=== PATIENT | male | born 1950 | race Caucasian/White ===

== ENCOUNTER 2020-08-29 23:37 | Emergency (ER) | payer MEDICARE ==
[~2020-08-29] VITALS: Ht 170.2 cm; Wt 99.8 kg
--- OUTSIDE RECORDS SUMMARY | 2020-08-29 23:49 | CCD ---
Author Author [facility] Organization [facility] Address Unknown Phone Unavailable Care Team Providers Care Calendar Control Clerk [employer] Name Role Phone TABBY LACKEY M.D. Unavailable Unavailable Tushar GIBSON MD Unavailable Unavailable Tushar GIBSON MD Unavailable Unavailable Tushar GIBSON MD Unavailable Unavailable SUNG, BINGHAM DO Unavailable +011 SUNG, BINGHAM DO Unavailable +011 SUNG, BINGHAM DO Unavailable +011 SUNG, BINGHAM DO Unavailable +011 SUNG, BINGHAM DO Unavailable +011 SUNG, BINGHAM DO Unavailable +011 SUNG, BINGHAM DO Unavailable +011 SUNG, BINGHAM DO Unavailable +011 SUNG, BINGHAM DO Unavailable +011 SUNG, BINGHAM DO Unavailable +011 SUNG, BINGHAM DO Unavailable +011 SUNG, BINGHAM DO Unavailable +011 SUNG, BINGHAM DO Unavailable +011 TIFFANY VAUGHN MD Unavailable Unavailable TIFFANY VAUGHN MD Unavailable Unavailable TIFFANY VAUGHN MD Unavailable Unavailable TIFFANY VAUGHN MD Unavailable Unavailable TIFFANY VAUGHN MD Unavailable Unavailable TIFFANY VAUGHN MD Unavailable Unavailable TIFFANY VAUGHN MD Unavailable Unavailable TIFFANY VAUGHN MD Unavailable Unavailable TIFFANY VAUGHN MD Unavailable Unavailable TIFFANY VAUGHN MD Unavailable Unavailable TIFFANY VAUGHN MD Unavailable Unavailable TIFFANY VAUGHN MD Unavailable Unavailable TIFFANY VAUGHN MD Unavailable Unavailable Guillermo, Wahib Unavailable Unavailable Guillermo, Wahib Unavailable Unavailable Guillermo, Wahib Unavailable Unavailable Guillermo, Wahib MD Unavailable Unavailable Guillermo, Wahib Unavailable Unavailable Guillermo, Wahib Unavailable Unavailable Guillermo, Wahib Unavailable Unavailable Guillermo, Wahib MD Unavailable Unavailable Guillermo, Wahib MD Unavailable Unavailable Guillermo, Wahib MD Unavailable Unavailable Guillermo, Wahib MD Unavailable Unavailable Guillermo, Wahib Unavailable Unavailable Guillermo, Wahib Unavailable Unavailable ARTHURSANDOR MD Unavailable Unavailable Chudasama-Jayden, A Haven COIL MACHINE SUPERVISOR Unavailable Unavailab le Chudasama-Jayden, A Haven COIL MACHINE SUPERVISOR Unavailable Unavailab le Chudasama-Jayden, A Haven COIL MACHINE SUPERVISOR Unavailable Unavailab le Chudasama-Jayden, A Haven COIL MACHINE SUPERVISOR Unavailable Unavailab le Chudasama-Jayden, A Haven COIL MACHINE SUPERVISOR Unavailable Unavailab le Chudasama-Jayden, A Haven COIL MACHINE SUPERVISOR Unavailable Unavailab le Chudasama-Jayden, A Haven COIL MACHINE SUPERVISOR Unavailable Unavailab le Chudasama-Jayden, A Haven COIL MACHINE SUPERVISOR Unavailable Unavailab le Chudasama-Jayden, A Haven COIL MACHINE SUPERVISOR Unavailable Unavailab le Chudasama-Jayden, A Haven COIL MACHINE SUPERVISOR Unavailable Unavailab le Chudasama-Jayden, A Haven COIL MACHINE SUPERVISOR Unavailable Unavailab le Chudasama-Jayden, A Haven COIL MACHINE SUPERVISOR Unavailable Unavailab le Chudasama-Jayden, A Haven COIL MACHINE SUPERVISOR Unavailable Unavailab le Chudasama-Jayden, A Haven COIL MACHINE SUPERVISOR Unavailable Unavailab le Chudasama-Jayden, A Haven COIL MACHINE SUPERVISOR Unavailable Unavailab le Chudasama-Jayden, A Haven COIL MACHINE SUPERVISOR Unavailable Unavailab le Chudasama-Jayden, A Haven COIL MACHINE SUPERVISOR Unavailable Unavailab le Chudasama-Jayden, A Haven COIL MACHINE SUPERVISOR Unavailable Unavailab le Chudasama-Jayden, A Haven COIL MACHINE SUPERVISOR Unavailable Unavailab le Chudasama-Jayden, A Haven COIL MACHINE SUPERVISOR Unavailable Unavailab le Chudasama-Jayden, A Haven COIL MACHINE SUPERVISOR Unavailable Unavailab TRU Friedman MD Unavailable Unavailable FEDTRU GUERRA MD Unavailable Unavailable FEDTRU GUERRA MD Unavailable Unavailable FEDTRU GUERRA MD Unavailable Unavailable FEDOROTRU HUFF MD Unavailable Unavailable OTILIA ROJAS DO Unavailable Unavailable TIFFANY VAUGHN MD Unavailable Unavailable ANJALI XAVIER MD Unavailable Unavailable ANJALI XAVIER MD Unavailable Unavailable Tushar MARTINEZ M.D. Unavailable Tushar MARTINEZ M.D. Unavailable Tushar MARTINEZ M.D. Unavailable Tushar MARTINEZ M.D. Unavailable [phone] Tushar MARTINEZ M.D. Unavailable Tushar MARTINEZ M.D. Unavailable Tushar MARTINEZ M.D. Unavailable [phone] Tushar MARTINEZ M.D. Unavailable Re-disclosure Warning The records that you are about to access may contain information from federally-assisted alcohol or drug abuse programs. If such information is present, then the following federally mandated warning applies: This information has been disclosed to you from records protected by federal confidentiality rules (42 CFR part 2). The federal rules prohibit you from making any further disclosure of this information unless further disclosure is expressly permitted by the written consent of the person to whom it pertains or as otherwise permitted by 42 CFR part 2. A general authorization for the release of medical or other information is NOT sufficient for this purpose. The Federal rules restrict any use of the information to criminally investigate or prosecute any alcohol or drug abuse patient.The records that you are about to access may contain highly sensitive health information, the redisclosure of which is protected by Article 27-F of the [facility] Public Health law. If you continue you may have access to information: Regarding HIV / AIDS; Provided by facilities licensed or operated by the [facility] Office of Mental Health; or Provided by the [facility] Office for People With Developmental Disabilities. If such information is present, then the following [facility] mandated warning applies: This information has been disclosed to you from confidential records which are protected by state law. State law prohibits you from making any further disclosure of this information without the specific written consent of the person to whom it pertains, or as otherwise permitted by law. Any unauthorized further disclosure in violation of state law may result in a fine or mcc sentence or both. A general authorization for the release of medical or other information is NOT sufficient authorization for further disc losure. Allergies and Adverse Reactions Type Description Substance Reaction Status Data Source(s ) Drug allergy Saunders And Derivatives Saunders And Derivatives SW ELLING OF HANDS AND LIPS U [facility] Drug allergy No Known Drug Allergies No Known Drug Allergies [facility] Drug allergy No Known Allergies No Known Allergies [facility] Family History Family Member Name Family Member Gender Family Member Status Date o f Status Description Data Source(s) Unknown Unknown Problem [facility] ([facility]) Encounters Encounter Providers Location Date Indications Data Source(s ) Outpatient Attender: Gregorio Li MD ER-CTCMEDONC 02/12/2020 08:33:00 AM EDT [facility] Outpatient Attender: TABBY MARTINEZ M.D.Attender: TABBY NARAYANAN M.D. ER-CARD 02/12/2020 04:00:00 AM EDT [facility] Outpatient Attender: Gregorio Li MD ER-RAD 02/11/2020 06:29:00 AM EDT [facility] Outpatient Attender: TABBY MARTINEZ M.D.Attender: TABBY NARAYANAN M.D. ER-RAD 02/09/2020 07:42:00 AM EDT [facility] Outpatient [address] [place] [address] 02/05/2020 12:00:00 AM EDT eCW1 ([facility]) Outpatient [address] [place] [address] 02/05/2020 12:00:00 AM EDT eCW1 ([facility]) Outpatient [address] [place] [address] 01/28/2020 12:00:00 AM EDT eCW1 ([facility]) Outpatient Attender: TABBY MARTINEZ M.D.Attender: TABBY NARAYANAN M.D. ER-LAB 01/22/2020 12:03:00 PM EDT [facility] Outpatient Attender: Gregorio Li MD ER-CTCMEDONC 01/22/2020 07:12:00 AM EDT [facility] Outpatient [address] [facility] [address] [place] [address] 01/22/2020 12:00:00 AM EDT eCW1 ([facility]) Outpatient Attender: Haven MENDIOLA 0 02:37:00 PM EDT [facility] Outpatient [address] [facility] [address] [place] [address] 01/08/2020 12:00:00 AM EDT eCW1 ([facility]) Outpatient [address] [facility] [address] [place] [address] 12/29/2019 12:00:00 AM EDT [facility] Inpatient Attender: OTILIA ROJAS DOAttender : OTILIA ROJAS DOAttender: SANDOR GIBSON MDAttender: SANDOR GIBSON MDAttender: TRU FERNANDEZ MDAdmitter: SANDOR GIBSON MD ER-2[facility] 12/26/2019 10:12:00 AM EDT - 12/27/2019 10:39:00 AM EDT [facility] Patient discharged. Outpatient [address] [facility] [address] [place] [address] 12/26/2019 12:00:00 AM EDT eCW1 ([facility]) Outpatient Attender: Haven WOODSP [facility] 10/14/2019 09:38:00 AM EDT [facility] Outpatient [address] [facility] [address] [place] [address] 10/14/2019 12:00:00 AM EDT [facility] Outpatient Attender: Haven WOODSP ER-[facility] 09/16/2019 02:18:00 PM EDT [facility] [address] [facility] [address] [place] [address] 09/16/2019 12:00:00 AM EDT eCW1 ([facility]) Inpatient Attender: TIFFANY VAUGHN MDAttender: TIFFANY VAUGHN MDAttender: SANDOR GIBSON MDAttender: SANDOR GIBSON MDAttender: ANJALI XAVIER MDAdmitter: SANDOR GIBSON MD ER-2[facility] 08/18/2019 07:59:00 PM EST - 08/20/2019 02:47:00 PM [facility] Patient discharged. Immunizations Vaccine Date Status Description Data Source(s) pneumococcal polysaccharide PPV23 01/22/2020 11:59:00 AM EDT comple terrance eCW1 ([facility]) pneumococcal polysaccharide PPV23 01/22/2020 11:59:00 AM EDT comple terrance eCW1 ([facility]) pneumococcal polysaccharide PPV23 01/22/2020 11:59:00 AM EDT comple terrance eCW1 ([facility]) pneumococcal polysaccharide PPV23 01/22/2020 11:59:00 AM EDT comple terrance eCW1 ([facility]) pneumococcal polysaccharide PPV23 01/22/2020 11:59:00 AM EDT comple terrance eCW1 ([facility]) Medications Medication Brand Name Start Date Product Form Dose Route Admi nistrative Instructions Pharmacy Instructions Status Indications Reaction Description Data Source(s) Fluconazole 100 MG Oral Tablet [Diflucan] Diflucan 100 MG Di flucan 100 MG 02/05/2020 12:00:00 AM EDT 1.0 {tablet} active Diflucan 100 MG eCW1 ([facility]) Fluconazole 100 MG Oral Tablet [Diflucan] Diflucan 100 MG Di flucan 100 MG 02/05/2020 12:00:00 AM EDT 1.0 {tablet} active Diflucan 100 MG eCW1 ([facility]) 28 ACTUAT olodaterol 0.0025 MG/ACTUAT / tiotropium 0.0025 MG/ACTUAT Metered Dose Inhaler [Stiolto] Stiolto Respimat 2.5-2.5 MCG/ACT Stiolto Respimat 2.5-2.5 MCG/ACT 02/05/2020 12:00:00 AM EDT 2.0 {puffs} activ e Stiolto Respimat 2.5-2.5 MCG/ACT eCW1 ([facility]) 28 ACTUAT olodaterol 0.0025 MG/ACTUAT / tiotropium 0.0025 MG/ACTUAT Metered Dose Inhaler [Stiolto] Stiolto Respimat 2.5-2.5 MCG/ACT Stiolto Respimat 2.5-2.5 MCG/ACT 02/05/2020 12:00:00 AM EDT 2.0 {puffs} activ e Stiolto Respimat 2.5-2.5 MCG/ACT eCW1 ([facility]) 200 ACTUAT Albuterol 0.09 MG/ACTUAT Mete red Dose Inhaler [ProAir] ProAir HFA 108 (90 Base) MCG/ACT ProAir HFA 108 (90 Base) MCG/ACT 01/22/2020 12:00:00 AM EDT 2.0 {puffs} active ProAir HFA 1 08 (90 Base) MCG/ACT eCW1 ([facility]) 200 ACTUAT Albuterol 0.09 MG/ACTUAT Mete red Dose Inhaler [ProAir] ProAir HFA 108 (90 Base) MCG/ACT ProAir HFA 108 (90 Base) MCG/ACT 01/22/2020 12:00:00 AM EDT 2.0 {puffs} active ProAir HFA 1 08 (90 Base) MCG/ACT eCW1 ([facility]) 200 ACTUAT Albuterol 0.09 MG/ACTUAT Mete red Dose Inhaler [ProAir] ProAir HFA 108 (90 Base) MCG/ACT ProAir HFA 108 (90 Base) MCG/ACT 01/22/2020 12:00:00 AM EDT 2.0 {puffs} active ProAir HFA 1 08 (90 Base) MCG/ACT eCW1 ([facility]) 30 ACTUAT fluticasone furoate 0.1 MG/ACT UAT / vilanterol 0.025 MG/ACTUAT Dry Powder Inhaler [Breo] Breo Ellipta 100-25 MCG/INH Breo Ellipta 100-25 MCG/INH 01/22/2020 12:00:00 AM EDT 1.0 {puff} active Breo Ellipta 100-25 MCG/INH eCW1 ([facility]) 200 ACTUAT Albuterol 0.09 MG/ACTUAT Mete red Dose Inhaler [ProAir] ProAir HFA 108 (90 Base) MCG/ACT ProAir HFA 108 (90 Base) MCG/ACT 01/22/2020 12:00:00 AM EDT 2.0 {puffs} active ProAir HFA 1 08 (90 Base) MCG/ACT eCW1 ([facility]) 200 ACTUAT Albuterol 0.09 MG/ACTUAT Mete red Dose Inhaler [ProAir] ProAir HFA 108 (90 Base) MCG/ACT ProAir HFA 108 (90 Base) MCG/ACT 01/22/2020 12:00:00 AM EDT 2.0 {puffs} active ProAir HFA 1 08 (90 Base) MCG/ACT eCW1 ([facility]) 30 ACTUAT fluticasone furoate 0.1 MG/ACT UAT / vilanterol 0.025 MG/ACTUAT Dry Powder Inhaler [Breo] Breo Ellipta 100-25 MCG/INH Breo Ellipta 100-25 MCG/INH 01/22/2020 12:00:00 AM EDT 1.0 {puff} active Breo Ellipta 100-25 MCG/INH eCW1 ([facility]) 30 ACTUAT fluticasone furoate 0.1 MG/ACT UAT / vilanterol 0.025 MG/ACTUAT Dry Powder Inhaler [Breo] Breo Ellipta 100-25 MCG/INH Breo Ellipta 100-25 MCG/INH 01/22/2020 12:00:00 AM EDT 1.0 {puff} active Breo Ellipta 100-25 MCG/INH eCW1 ([facility]) Insurance Providers Payer name Policy type / Coverage type Policy ID Covered libertarian ID Covered libertarian's relationship to song Policy Song Plan Information [facility] OPTIONS [id number] S [id number] [facility] [id number] MEDICARE [id number] S [id number] MCRB [id number] S [id number] MEDICAID M [id number] Self [id number] [facility] UNITED MEDICARE COMPLETE G [id number] Self [id number] Non [place] Care Commercial [id number] Self [id number] [facility] Options Medigap Part B [id number] Self [id number] Medicare Part B Medicare Primary [id number] Self [id number] AARP HEA [id number] S [id number] MEDICARE MCA [id number] S [id number] MEDICARE MCA [id number] S [id number] MEDICAID [id number] Faye [id number] [facility] MEDICARE [id number] Faye [id number] MEDICAID PI PI [facility] MEDICARE PI PI Medicaid After Medicare Medigap Part B [id number] Self [id number] [facility] Commercial [id number] Self [id number] OTHER B [id number] Self [id number] [facility] Dual Complete [id number] Medicaid [id number] [facility] Community Plan [id number] STPP Wrap [id number] [facility] Community Plan Medicaid Nycdfhp self Nycdfhp [facility] Community Plan [id number] 99 [id number] [facility] HEA [id number] Problems, Conditions, and Diagnoses Code Display Name Description Problem Type Effective Dates Data Source(s) G47.19 [id number] Excessive daytime sleepiness Problem 01/22/2020 12:00:00 AM EDT eCW1 ([facility]) Z01.812 Encounter for preprocedural laboratory e xamination Pre-procedure lab exam Problem 01/22/2020 12:00:00 AM EDT eCW1 ([facility]) R06.02 [id number] SOB (shortness of breath) on exertion Pro blem 01/22/2020 12:00:00 AM EDT eCW1 ([facility]) J32.9 [id number] Sinusitis, unspecified chronicity, unspec ified location Problem 01/22/2020 12:00:00 AM EDT eCW1 ([facility]) R41.3 [id number] Memory loss Problem 01/22/2020 12:00:00 AM E DT eCW1 ([facility]) Z23 Vaccination given Encounter for immunization Problem 01/22/2020 12:00:00 AM EDT eCW1 ([facility]) G47.33 [id number] ARAVIND (obstructive sleep apnea) Problem 01/22/2020 12:00:00 AM EDT eCW1 ([facility]) Z77.090 [id number] Asbestos exposure Problem 01/22/2020 12:00:0 0 AM EDT eCW1 ([facility]) Z86.19 History of infectious disease Frequent infections Prob nikhil 01/22/2020 12:00:00 AM EDT eCW1 ([facility]) I27.20 [id number] Pulmonary hypertension Problem 01/22/2020 12 :00:00 AM EDT eCW1 ([facility]) I10 Hypertension Hypertension Problem 01/22/2020 12:00:00 A M EDT eCW1 ([facility]) R63.5 Weight gain Weight gain Problem 01/22/2020 12:00:00 AM EDT eCW1 ([facility]) I10 [id number] Essential hypertension Problem 01/08/2020 12 :00:00 AM EDT eCW1 ([facility]) C61 [id number] Prostate cancer Problem 01/08/2020 12:00:00 AM EDT eCW1 ([facility]) I10 Essential (primary) hypertension ESSENTIAL (PRIMARY) H YPERTENSION Diagnosis 02/12/2020 08:33:00 AM EDT [facility] R59.0 Localized enlarged lymph nodes LOCALIZED ENLARGED LYMP H NODES Diagnosis 02/12/2020 08:33:00 AM EDT [facility] R97.20 ELEVATED PROSTATE SPECIFIC ANTIGEN [PSA] ELEVATED PROSTATE SPECIFIC ANTIGEN [PSA] Diagnosis 02/12/2020 08:33:[facility] I37.1 Nonrheumatic pulmonary valve insufficien cy NONRHEUMATIC PULMONARY VALVE INSUFFICIENCY Diagnosis 02/12/2020 04:00:00 AM EDT [facility] norbert I36.1 Nonrheumatic tricuspid (valve) insuffici ency NONRHEUMATIC TRICUSPID (VALVE) INSUFFICIENCY Diagnosis 02/12/2020 04:00:00 AM EDT [facility] I34.0 Nonrheumatic mitral (valve) insufficienc y NONRHEUMATIC MITRAL (VALVE) INSUFFICIENCY Diagnosis 02/12/2020 04:00:00 AM EDT [facility] norbert I27.20 PULMONARY HYPERTENSION, UNSPECIFIED PULMONARY HY PERTENSION, UNSPECIFIED Diagnosis 02/12/2020 04:00:00 AM [facility] R07.9 Chest pain, unspecified CHEST PAIN, UNSPECIFIED Diagno sis 02/12/2020 04:00:00 AM [facility] C61 Malignant neoplasm of prostate MALIGNANT NEOPLASM OF P ROSTATE Diagnosis 02/11/2020 06:29:00 AM [facility] D17.1 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 BENIGN LIPOMATOUS NEOPLASM OF SKIN, SUBCU OF TRUNK Diagnosis 0 07:42:00 AM [facility] I25.10 Atherosclerotic heart diseas e of [place] coronary artery without angina pectoris ATHSCL HEART DISEASE OF [place] CORONARY ARTERY W/O Diagnosis 02/09/2020 07:42:00 AM [facility] R06.02 Shortness of breath SHORTNESS OF BREATH Diagnosis 0 02/09/2020 07:42:00 AM [facility] J32.9 Chronic sinusitis, unspecified CHRONIC SINUSITIS, UNSP ECIFIED Diagnosis 02/09/2020 07:42:00 AM [facility] Z86.19 Personal history of other infectious and parasitic diseases PERSONAL HISTORY OF OTHER INFECTIOUS AND PARASITIC Diagnosis 01/22/2020 12:03:0 0 PM [facility] Z91.19 Patient's noncompliance with other medic al treatment and regimen PATIENT'S NONCOMPLIANCE W OTH MEDICAL TREATMENT AN Diagnosis 08/2019 02:37:00 PM [facility] M25.561 Pain in right knee PAIN IN RIGHT KNEE Diagnosis 08/2019 02:37:00 PM [facility] Z86.79 Personal history of other diseases of th e circulatory system PERSONAL HISTORY OF OTHER DISEASES OF THE CIRCULAT Diagnosis 01/08/2020 02:37:0 0 PM EDT [facility] K56.600 PARTIAL INTESTINAL OBSTRUCTION, UNSPECIF IED TO PARTIAL INTESTINAL OBSTRUCTION, UNSPECIFIED TO Diagnosis 01/08/2020 02:37:00 PM EDT [facility] Z09 Encounter for follow-up exam ination after completed treatment for conditions other than malignant neoplasm ENCNTR FOR F/U EXAM AFT TRTMT FOR COND O TH THAN MALIG NEOPLM Diagnosis 01/08/2020 02:37:00 PM EDT [facility] norbert Z53.29 Procedure and treatment not carried out because of patient's decision for other reasons PROC/TRTMT NOT CRD OUT BEC PT DECISION FOR OTH KAILYN Diagnosis 12/26/2019 10:12:00 AM EDT [facility] R10.9 Unspecified abdominal pain UNSPECIFIED ABDOMINAL PAIN Diagnosis 12/26/2019 10:12:00 AM EDT [facility] R51 Headache HEADACHE Diagnosis 12/26/2019 10:12:00 AM ED T [facility] Z87.891 Personal history of nicotine dependence PERSONAL HISTORY OF NICOTINE DEPENDENCE Diagnosis 12/26/2019 10:12:00 AM EDT [facility] R60.0 Localized edema LOCALIZED EDEMA Diagnosis 12/26/2019 10:1 2:00 AM EDT [facility] 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 AND P Diagnosis 12/26/2019 10:12:00 AM EDT [facility] E87.70 Fluid overload, unspecified FLUID OVERLOAD, UNSPECIFIE D Diagnosis 12/26/2019 10:12:00 AM EDT [facility] Z12.5 Encounter for screening for malignant ne oplasm of prostate ENCOUNTER FOR SCREENING FOR MALIGNANT NE Diagnosis 10/14/2019 09:38:00 AM EDT [facility] E86.0 Dehydration DEHYDRATION Diagnosis 08/18/2019 07:59:00 PM [facility] K52.9 Noninfective gastroenteritis and colitis , unspecified NONINFECTIVE GASTROENTERITIS AND COLITIS, UNSPECIF Diagnosis 08/18/2019 07:59:00 PM [facility] Surgeries/Procedures Procedure Description Date Indications Data Source(s) Introduction of Other Therapeutic Substa nce into Peripheral Vein, Percutaneous Approach 12/26/2019 12:00:00 AM EDT [facility] Venipuncture 10/14/2019 12:00:00 AM EDT eCW1 ([facility]) Results ID Date Data Source [id number] 02/17/2020 05:21:00 AM EDT [facility] Exam Number: [id number] STRESS ECHOCARDIOGRAMSEMIGUEL GOMEZD.O.B: 54DATE OF EXAM; 02/12/2020REASON FOR EXAM: SHORTNESS OF BREATHThere was no evidence of significant reversible ischemia on dobutaminestress echocardiogram.No significat ST segment changes with dobutamine infusion.102 % of the target heart rate was reached.The test was stopped secondary to exceeding the target heart rate.The patient remained asymptomatic without chest pain or shortness ofbreath.No diagnostic ST segment changes were seen.Patient had no significant arrhythmias.There was normal augmentation of all left ventricular wall segmentspost peak dobutamine infusion.Normal LV chamber size with an estimated LVEF of about 60 %.Mild concentric left ventricular hypertrophy.The LV systolic function is normal.Mild LV diastolic dysfunction with abnormal relaxation pattern.The ascending aorta is mildly dilated ( 3.4 cm ); no obviousdissection was seen.The aortic valve function is normal.Trace mitral valve regurgitation. No valve stenosis, or leafletsprolapse.Trace pulmonary valve regurgitation. No valve stenosis.Mild tricuspid valve regurgitation. No valve stenosis.The right ventricular size and function are normal.The estimated RVSP is 27 mmHg.The interatrial and interventricular septa appears intact.There is no pericardial effusion. Reported By: - Alejandra Rizo MD Signed By: Alejandra Rizo MD Name Value Range Interpretation Code Description Data Antionette rce(s) Supporting Document(s) ID Date Data Source [id number] 02/12/2020 08:48:00 PM EDT [facility] [address] [id number] PROGRESS NOTEPATIENT NAME: MIGUEL VICKERS PHYSICIAN: TABBY Finley LEEAUTHOR: Alejandra Rizo MD : 54ADM. DATE: MR#: [id number] NOTE DATE: 02/12/20 RM#:EVALUATION TIME: [address] [facility]#: [id number] NotesDOBUTAMINE STRESS ECHOCARDIOGRAMSENIEVES GOMEZ.B: 54DATE OF EXAM; 02/12/2020REASON FOR EXAM: SHORTNESS OF BREATHThere was no evidence of significant reversible ischemia on dobutamine stressechocardiogram.No significat ST segment changes with dobutamine infusion.102 % of the target heart rate was reached.The test was stopped secondary to exceeding the target heart rate.The patient remained asymptomatic without chest pain or shortness of breath.No diagnostic ST segment changes were seen.Patient had no significant arrhythmias.There was normal augmentation of all left ventricular wall segments post peakdobutamine infusion.Normal LV chamber size with an estimated LVEF of about 60 %.Mild concentric left ventricular hypertrophy.The LV systolic function is normal.Mild LV diastolic dysfunction with abnormal relaxation pattern.The ascending aorta is mildly dilated ( 3.4 cm ); no obvious dissection wasseen.The aortic valve function is normal.Trace mitral valve regurgitation. No valve stenosis, or leaflets prolapse.Trace pulmonary valve regurgitation. No valve stenosis.Mild tricuspid valve regurgitation. No valve stenosis.The right ventricular size and function are normal.The estimated RVSP is 27 mmHg.The interatrial and interventricular septa appears intact.There is no pericardial effusion.DATE SIGNED: 02/12/20 Electronically SignedTIME SIGNED: [id number] ALEJANDRA Finley BANNER Name Value Range Interpretation Code Description Data Antionette rce(s) Supporting Document(s) ID Date Data Source [id number] 02/12/2020 04:16:00 PM EDT [facility] norbert Loera [facility] [address] [place] [id number] FOLLOW UP NOTENAME: MIGUEL VICKERS RPHYSICIAN: JUAN HARKINSATE OF SERVICE: 02/12/20DATE OF : [birth year]ACCOUNT #: [id number]: MIGUEL VICKERSDate: Feb 12, 2020DOB: [birth year]Physician: Dr. Gregorio Li M.D.Age: 69Note Title: Hematology/Medical Oncology Follow UpDiagnosis:Primary - R59.1 - Generalized enlarged lymph nodes, Diagnosed Jan 22, 2020(Active)Primary - R97.20 - Elevated prostate specific antigen [PSA], Diagnosed 2019 (Active)History of Problems:Problems / Chief Complaints:Referral for prostate cancer?History of Present Illness:The patient is a 69-year-old male with a past medical history of prostatecancer and hypertension. The prostate cancer is presumed as the patient isnever had a biopsy. His PSA is elevated. Patient was referred to [facility] initially, he said he left before a full evaluation could becompleted because he did not like the team there. The patient is status postdischarge from [facility] on December 23 after he presented with shortness of breathand weight gain. The patient had lower extremity edema and elevated bloodpressure. The patient was noted to have lymphadenopathy in the periaortic andcommon iliac nodes. The patient decided to sign out AGAINST MEDICAL ADVICE.Patient has had a few urology appointments that he is canceled.The day the patient presents for his initial encounter. He is a nicegentleman who clearly has difficulty taking orders from anyone else. He feltthat his previous encounters with doctors, they were told what to do. Thepatient says that at this time he would like to further investigate if he hasprostate cancer and then would like to manage it. Patient has made it clear hehas never had a biopsy. Today the patient is in no acute distress, he is alertand oriented x3, does not complain of weight loss, weight gain, headache, chestpain, shortness of breath, abdominal pain, urinary or bowel discomfort, bloodin his stool or blood in his urine, leg swelling.As per the ER note on the date of admission to the hospital, his bloodpressure was 198/122, he had 8 out of 10 painful headache, dizziness andunsteady gait. He did not have chest pain, nausea or vomiting. He did nothave any urinary discomfort, no bowel discomfort.December 26, 2019 echocardiogram: Normal left ventricular chamber size, EF 60%,mild concentric LVH, normal LV diastolic function, no significant significantvalvular abnormalities.Patient had a PET/CT on February 11, 2020 that showed mild periaorticlymphadenopathy. No other disease was present. The patient scheduled for abiopsy with urology in the next 2 weeks. The patient is on no the patient.08/27/2019 CT abdomen pelvis: Fatty liver, 0.7 cm parenchymal stone in theupper lobe of the left kidney, bilateral lymphadenopathy in the common iliacnodes. Some lymphadenopathy in the left periaortic node.Past Medical History:HypertensionProstate CancerPast Surgical History:Plastic Plate in HeadAllergies:No Known Allergies.Current Medications:inhaler 1 puff(s) Inhaler Oral daily (Start Date - unknown)Social History:Mr. VICKERS is single. Mr. VICKERS has never smoked. He has no history ofdrinking.Family History:Mr. VICKERS's mother is . Mr. VICKERS's father is .Review of Systems:ConstitutionalNormal - No fevers, chills, night sweats, excessive fatig ue or weight loss.Allergic/ImmunologicNormal - No reactions.HeadNormal - no recent head injury;EyesNormal - No significant visual difficulties. No diplopia.ENMTNormal - No problems with hearing, no sore throat, no sinus drainage.EndocrineNormal - No diabetes, thyroid disease or hormone replacement. No hot flashesor night sweats.Hematologic/LymphaticNormal - No easy bruising or bleeding. The patient denies any tender orpalpable lymph nodes.BreastsNormal - No abnormal masses of breast, no nipple discharge or pain.RespiratoryNormal - No dyspnea on exertion, chest pain, cough or hemoptysis.CardiovascularNormal - No anginal chest pain, palpitations or orthopnea.GastrointestinalNormal - No nausea, vomiting, diarrhea, GI bleeding, or constipation. Nochange in bowel habits, no heartburn or early satiety.Genitourinary (M)Normal - No hematuria, dysuria, increased frequency, urgency, hesitancy orincontinence.MusculoskeletalNormal - No joint pain, swelling or redness. No decreased range of motion.IntegumentaryNormal - No chronic rashes, inflammation, ulcerations or skin changes.NeurologicNormal - No headache, blurred vision, and no areas of focal weakness ornumbness. Normal gait. No sensory problems.Psychi atricNormal - No insomnia, depression, sabrina or mood swings. No psychotropicdrugs.Vital Signs:Performed on Feb 12, 2020 08:02Fjzxnw17.00 zcFcmrbi950.4 lbs(HIGH)BSA (derived)2.10 sq.mBMI34.79Bxmqvqnuesa72 EXfnrp83 /cbjCsvnxwqvjln72 /gncSP470/82Pulse Oximetry (O2 Sat)97 %Fall RiskLow RiskPerformance Status:0 - Fully active, able to carry on all predisease activities withoutrestrictions. (ECOG)Physical Exam:ConstitutionalNormal - Alert, cooperative, oriented. Mood and affect appropriate. Appearsclose to chronological age. Well nourished. Well developed.HeadNormal - Normocephalic; no scars.EyesNormal - Conjunctivae and sclerae are clear and without icterus. Pupils arereactive and equal.ENMTNormal - Sinuses are nontender. No oral exudates, ulcers, masses, thrush ormucositis. Oropharynx clear. Tongue normal.NeckNormal - Supple without masses or thyromegaly. No jugular venous distension.Hematologic/LymphaticNormal - No petechiae or purpura. No tender or palpable lymph nodes in thecervical, supraclavicular, axillary or inguinal area.RespiratoryNormal - Lungs are clear to auscultation without rhonchi or wheezing. Not InCardiac DistressCardiovascularNormal - cardiac heart sounds present; no tenderness during chest palpation;not in cardiac distress.ChestNormal - Chest is symmetric without chest wall deformities.AbdomenNormal - Non-tender, non-distended, no masses, ascites or hepatosplenomegaly.Good bowel sounds. No guarding or rebound tenderness. No pulsatile masses.GenitourinaryNormal - no bladder distention;Back/SpineNormal - No kyphosis, scoliosis, compression fractures. Non-tender topalpatio n.ExtremitiesNormal - No visible deformities, no cyanosis, clubbing or edema. Pulses 4+ andequal bilaterally.MusculoskeletalNormal - No tenderness or swelling, normal range of motion without obviousweakness.IntegumentaryNormal - No rashes, scars, or lesions suggestive of malignancy.NeurologicNormal - No sensory or motor deficits, normal cerebellar function, normalgait, cranial nerves intact.PsychiatricNormal - Alert and oriented times three. Coherent speech. Verbalizesunderstanding of our discussions today.Laboratory:Test performed on Jan 22, 2020 12:30ABG pH7.391ABG tAA059.3 mmHgABG pO279.9 mmHg(LO W)ABG AFB151.5 mmol/LABG O2 Sat (Calc)95.4 %Device / RhP3UEMW AIRTest performed on Jan 22, 2020 12:20WBC6.55 x10E3/uLRBC4.75 x10E6/uLHGB14.7 g/dLHCT42.2 %MCV88.8 fLMCH30.9 ovHYQL32.8 g/dLRDW13.0 %Platelet Jrgea283 x10E3/uLMPV11.4 fl(HIGH)Neutrophils3.7 x10E3/uLLymphocytes1.9 x10E3/uLMonocytes0.6 x10E3/uLEosinophils0.2 x10E3/uLBasophils0.0 x10E3/uLImmature Grans0.1 x10E3/uLNeutrophil %56.9 %Lymphocyte %28.5 %Monocyte %9.5 %Eosinophil %3.7 %Basophils %0.6 %Immature Grans %0.8 %Other test results are not available for this patient.Impression:Periaortic and iliac lymphadenopathy. Elevated PSA. The patient adamantlydeveloped denies having a biopsy, the first 7 management would be a urologicalconsultation for a biopsy. The patient can also have a PET/CT. We can sendfor the patient's testosterone and PSA levels. The patient did not have repeatPSA or testosterone. The patient still has not seen urology. He says he isscheduled to have a biopsy done within the next 2 weeks. I can follow thepatient up in 6 weeks, after the biopsy is resulted for further management.Plan:Follow-up PSA levels. Follow-up biopsy results. Follow-up after biopsy hasbeen obtained. We will schedule a tentative date for 2 months.Electronically signed by:Dr. Gregorio LiCC: Name Value Range Interpretation Code Description Data Antionette rce(s) Supporting Document(s) ID Date Data Source [id number] 02/11/2020 11:39:00 AM EDT Cedric toussaint Exam Number: [id number] OF SHAMIKA N: 02/11/2020 10:58 EDTPET/CT HEAD TO MID THIGHCOMPARED TO: No prior PET CTs. Comparison is made to most recent priorCT of 12/26/2019HISTORY: Prostate cancerTECHNIQUE: Following intravenous injection of 9.11 mCi of FDG, a totalbody PET scan was performed from the base of the of the skull to theupper thighs. Prior to the PET scan, transmission CT was performed.Fusion images were created from the source data. Attenuationcorrection was applied.FINDINGS:Iliac chain nodes and left periaortic nodes seen on the patient's mostrecent prior CT scan are identified on this study and are unchanged innumber size and contour revealing SUVs in the range of 1. 7-2. Thereis no evidence for any abnormal solid organ or osseous uptake.IMPRESSION:Previously noted lymph nodes persist revealing relatively low uptakelevels. Neoplastic involvement is still not excluded.Thank you for allowing us to participate in the care of your patient.I would be glad to review the images with you and answer any questionsthat you may have.Electronically signed in PS360 by: Cruzito White M.D. 02/11/202011:32 EDT Reported By: - Carri WHITE M.D. Signed By: Carri WHITE M.D. Name Value Range Interpretation Code Description Data Antionette rce(s) Supporting Document(s) ID Date Data Source [id number] 02/09/2020 10:03:00 AM EDT Cedric toussaint Exam Number: [id number] OF SHAMIKA N: 02/09/2020 7:59 EDTPULMONARY PERFUSION W/ VENTHISTORY: Pulmonary hypertension. Shortness of breath.1 of aerosolized Technetium 99m labeled DTPA was utilized for theventilation images and 8.3 mCi of Technetium 99m labeled MAA for theperfusion images.There is normal distribution of activity on both the ventilation andperfusion images. There are no matched or mismatched defects.IMPRESSION:Unremarkable exam.Electronically signed in PS360 by: Cruzito White M.D. 02/09/2020 9:57EDT Reported By: Freedom WHITE M.D. Signed By: Carri WHITE M.D. Name Value Range Interpretation Code Description Data [facility]) Supporting Document(s) ID Date Data Source [id number] 02/09/2020 09:06:00 AM EDT Cedric toussaint Exam Number: [id number] OF EXAMINATIO N: 02/09/2020 7:57 EDTCT FACIAL BONES/PNS W/OHISTORY: Pain. Chronic sinusitis.TECHNIQUE:This CT exam was performed using the following dose reductiontechniques: automated exposure control, adjustment of mA and/or kVaccording to the patient size, and use of iterative reconstructiontechnique.High-resolution axial images were taken without contrastadministration and with coronal reformatting.FINDINGS:Frontal ethmoidal maxillary and the sphenoid sinuses are clear. Nasalseptum is midline in position. Ostiomeatal units are patent. There areno kvng bullosa or parado xical turbinatesIMPRESSION:Unremarkable CT scan of the sinuses.Electronically signed in PS360 by: Cruzito White M.D. 02/09/2020 8:59EDT Reported By: Freedom WHITE M.D. Signed By: Carri WHITE M.D. Name Value Range Interpretation Code Description Data [facility] Supporting Document(s) ID Date Data Source [id number] 02/09/2020 09:05:00 AM EDT Cedric toussaint Exam Number: [id number] OF EXAMINATIO N: 02/09/2020 8:19 EDTCT CHEST W/O CONTHISTORY: Shortness of breath. Dyspnea on exertion. Comparison is madeto prior CT scan of 12/25/2019TECHNIQUE:This CT exam was performed using the following dose reductiontechniques: automatic exposure control, adjustment of mA and/or kVaccording to the patient's size, and use of iterative reconstructiontechnique.Standard contiguous axial spiral imaging was obtained from lung apicesto the lung bases without intravenous contrast administration and withcoronal reformatting.FINDINGS:Lungs: Clear and well-expanded. No focal mass or consolidation.Pleural space: No pleural effusionMediastinum: Mild calcified coronary arterial plaque formation. Nolymphadenopathy.Bones/joints: 8 x 5 x 3 cm lipoma of the left subscapularis muscleNo pericardial effusionIMPRESSION:Overall no significant interval change. No focal consolidation ormass.Electronically signed in PS360 by: Cruzito White M.D. 02/09/2020 8:58EDT Reported By: Freedom WHITE M.D. Signed By: Carri WHITE M.D. Name Value Range Interpretation Code Description Data Antionette rce(s) Supporting Document(s) ID Date Data Source [id number] 01/23/2020 07:17:00 PM EDT [facility] J CARLOS Loera [address] [id number] FOLLOW UP NOTENAME: MIGUEL VICKERS RPHYSICIAN: GREGORIO LI, MDDATE OF SERVICE: 01/22/20DATE OF : 54ACCOUNT #: [id number]: MIGUEL VICKERSDate: Jan 22, 2020DOB: [birth year]Physician: Dr. Gregorio Li M.D.Age: 69Note Title: Hematology/Medical Oncology Follow UpDiagnosis:There is no information available.History of Problems:Problems / Chief Complaints:Referral for prostate cancer?History of Present Illness:The patient is a 69-year-old male with a past medical history of prostatecancer and hypertension. The prostate cancer is presumed as the patient isnever had a biopsy. His PSA is elevated. Patient was referred to [facility] initially, he said he left before a full evaluation could becompleted because he did not like the team there. The patient is status postdischarge from [facility] on December 23 after he presented with shortness of breathand weight gain. The patient had lower extremity edema and elevated bloodpressure. The patient was noted to have lymphadenopathy in the periaortic andcommon iliac nodes. The patient decided to sign out AGAINST MEDICAL ADVICE.Patient has had a few urology appointments that he is canceled.The day the patient presents for his initial encounter. He is a nicegentleman who clearly has difficulty taking orders from anyone else. He feltthat his previous encounters with doctors, they were told what to do. Thepatient says that at this time he would like to further investigate if he hasprostate cancer and then would like to manage it. Patient has made it clear hehas never had a biopsy. Today the patient is in no acute distress, he is alertand oriented x3, does not complain of weight loss, weight gain, headache, chestpain, shortness of breath, abdominal pain, urinary or bowel discomfort, bloodin his stool or blood in his urine, leg swelling.As per the ER note on the date of admission to the hospital, his bloodpressure was 198/122, he had 8 out of 10 painful headache, dizziness andunsteady gait. He did not have chest pain, nausea or vomiting. He did nothave any urinary discomfort, no bowel discomfort.December 26, 2019 echocardiogram: Normal left ventricular chamber size, EF 60%,mild concentric LVH, normal LV diastolic function, no significant significantvalvular abnormalities.08/27/2019 CT abdomen pelvis: Fatty liver, 0.7 cm parenchymal stone in theupper lobe of the left kidney, bilateral lymphadenopathy in the common iliacnodes. Some lymphadenopathy in the left periaortic node.Past Medical History:HypertensionProstate CancerPast Surgical History:Plastic Plate in HeadAllergies:No Known Allergies.Current Medications:This patient reports not taking external medications.Social History:Mr. VICKERS is single. Mr. VICKERS has never smoked. He has no history ofdrinking.Family History:Mr. VICKERS's mother is . Mr. VICKERS's father is .Review of Systems:ConstitutionalNormal - No fevers, chills, night sweats, excessive fatigue or weight loss.Allergic/ImmunologicNormal - No reactions.HeadNormal - no recent head injury;EyesNormal - No significant visual difficulties. No diplopia.ENMTNormal - No problems with hearing, no sore throat, no sinus drainage.EndocrineNormal - No diabetes, thyroid disease or hormone replacement. No hot flashesor night sweats.Hematologic/LymphaticNormal - No easy bruising or bleeding. The patient denies any tender orpalpable lymph nodes.BreastsNormal - No abnormal masses of breast, no nipple discharge or pain.RespiratoryNormal - No dyspnea on exertion, chest pain, cough or hemoptysis.CardiovascularNormal - No anginal chest pain, palpitations or orthopnea.GastrointestinalNormal - No nausea, vomiting, diarrhea, GI bleeding, or constipation. Nochange in bowel habi ts, no heartburn or early satiety.Genitourinary (M)Normal - No hematuria, dysuria, increased frequency, urgency, hesitancy orincontinence.MusculoskeletalNormal - No joint pain, swelling or redness. No d ecreased range of motion.IntegumentaryNormal - No chronic rashes, inflammation, ulcerations or skin changes.NeurologicNormal - No headache, blurred vision, and no areas of focal weakness ornumbness. Normal gait. No sensory problems.PsychiatricNormal - No insomnia, depression, sabrina or mood swings. No psychotropicdrugs.Vital Signs:Performed on Jan 22, 2020 08:90Xqjixt09 zoJadniu202 lbsBSA (derived)2.10 sq.mBMI34.35Eihgwucoaby60.4 CSqqbl229 /min(HIGH)Fuqnqcdivxb60 /ljtBV460/84Pulse Oximetry (O2 Sat)97 %Fall RiskLow RiskPerformance Status:0 - Fully active, able to carry on all predisease activities withoutrestrictions. (ECOG)Physical Exam:ConstitutionalNormal - Alert, cooperative, oriented. Mood and affect appropriate. Appearsclose to chronological age. Well nourished. Well developed.HeadNormal - Normocephalic; no scars.EyesNormal - Conjunctivae and sclerae are clear and without icterus. Pupils arereactive and equal.ENMTNormal - Sinuses are nontender. No oral exudates, ulcers, masses, thrush ormucositis. Oropharynx clear. Tongue normal.NeckNormal - Supple without masses or thyromegaly. No jugular venous distension.Hematologic/LymphaticNormal - No petechiae or purpura. No tender or palpable lymph nodes in thecervical, supraclavicular, axillary or inguinal area.RespiratoryNormal - Lungs are clear to auscultation without rhonchi or wheezing. Not InCardiac DistressCardiovascularNormal - cardiac heart sounds present; no tenderness during chest palpation;not in cardiac distress.ChestNormal - Chest is symmetric without chest wall deformities.AbdomenNormal - Non-tender, non-distended, no masses, ascites or hepatosplenomegaly.Good bowel sounds. No guarding or rebound tenderness. No pulsatile masses.GenitourinaryNormal - no bladder distention;Back/SpineNormal - No kyphosis, scoliosis, compression fractures. Non-tender topalpation.ExtremitiesNormal - No visible deformities, no cyanosis, clubbing or edema. Pulses 4+ andequal bilaterally.MusculoskeletalNormal - No tenderness or swelling, normal range of motion without obviousweakness.IntegumentaryNormal - No rashes, scars, or lesions suggestive of malignancy.NeurologicNormal - No sensory or motor deficits, normal cerebellar function, normalgait, cranial nerves intact.PsychiatricNormal - Alert and oriented times three. Coherent speech. Verbalizesunderstanding of our discussions today.Laboratory:Test performed on Jan 22, 2020 12:30ABG pH7.391ABG yXJ495.3 mmHgABG pO279.9 mmHg(LOW)ABG JVC439.5 mmol/LABG O2 Sat (Calc)95.4 %Device / ZpZ1EAPJ AIRTest performed on Jan 22, 2020 12:20WBC6.55 x10E3/uLRBC4.75 x10E6/uLHGB14.7 g/dLHCT42.2 %MCV88.8 fLMCH30.9 dsHISX61.8 g/dLRDW13.0 %Platelet Manti191 x10E3/uLMPV11.4 fl(HIGH)Neutrophils3.7 x10E3/uLLymphocytes1.9 x10E3/uLMonocytes0.6 x10E3/uLEosinophils0.2 x10E3/uLBasophils0.0 x10E3/uLImmature Grans0.1 x10E3/uLNeutrophil %56.9 %Lymphocyte %28.5 %Monocyte %9.5 %Eosinophil %3.7 %Basophils %0.6 %Immature Grans %0.8 %Other test results are not available for this patient.Impression:Periaortic and iliac lymphade nopathy. Elevated PSA. The patient adamantlydeveloped denies having a biopsy, the first 7 management would be a urologicalconsultation for a biopsy. The patient can also have a PET/CT. We can sendfor the patient's testosterone and PSA levels. I will see him after the biopsyresults.Plan:Urology consultation for biopsy.PET/CT.Send PSA antigen, total PSA, free PSA.Follow-up within 4 weeks for management.Electronically signed by:Dr. Gregorio LiCC: Name Value Range Interpretation Code Description Data Antionette rce(s) Supporting Document(s) ID Date Data Source [id number] 01/23/2020 07:17:00 PM EDT [facility] J CARLOS Loera [address] [id number] NEW PATIENT CONSULTATIONNAME: MIGUEL VICKERS RPHYSICIAN: JUAN HARKINSATE OF SERVICE: 01/22/20DATE OF : 54ACCOUNT #: [id number]: MIGUEL VICKERSDate: Jan 22, 2020DOB: [birth year]Physician: Dr. Gregorio Li M.D.Age: 69Note Title: Medical Oncology/Hematology New PatientDiagnosis:There is no information available.History of Problems:Problems /Chief Complaints:Referral for prostate cancer?History of Present Illness:The patient is a 69-year-old male with a past medical history of prostatecancer and hypertension. The prostate cancer is presumed as the patient isnever had a biopsy. His PSA is elevated. Patient was referred to [facility] initially, he said he left before a full evaluation could becompleted because he did not like the team there. The patient is status postdischarge from [facility] on December 23 after he presented with shortness of breathand weight gain. The patient had lower extremity edema and elevated bloodpressure. The patient was noted to have lymphadenopathy in the periaortic andcommon iliac nodes. The patient decided to sign out AGAINST MEDICAL ADVICE.Patient has had a few urology appointments that he is canceled.The day the patient presents for his initial encounter. He is a nicegentleman who clearly has difficulty taking orders from anyone else. He feltthat his previous encounters with doctors, they were told what to do. Thepatient says that at this time he would like to further investigate if he hasprostate cancer and then would like to manage it. Patient has made it clear hehas never had a biopsy. Today the patient is in no acute distress, he is alertand oriented x3, does not complain of weight loss, weight gain, headache, chestpain, shortness of breath, abdominal pain, urinary or bowel discomfort, bloodin his stool or blood in his urine, leg swelling.As per the ER note on the date of admission to the hospital, his bloodpressure was 198/122, he had 8 out of 10 painful headache, dizziness andunsteady gait. He did not have chest pain, nausea or vomiting. He did nothave any urinary discomfort, no bowel discomfort.December 26, 2019 echocardiogram: Normal left ventricular chamber size, EF 60%,mild concentric LVH, normal LV diastolic function, no significant significantvalvular abnormalities.08/27/2019 CT abdomen pelvis: Fatty liver, 0.7 cm parenchymal stone in theupper lobe of the left kidney, bilateral lymphadenopathy in the common iliacnodes. Some lymphadenopathy in the left periaortic node.Past Medical History:HypertensionProstate CancerPast [facility]:No Known Allergies.Current Medications:This patient reports not taking external medications.Social History:Mr. VICKERS is single. Mr. VICKERS has never smoked. He has no history ofdrinking.Family History:Mr. VICKERS's mother is . Mr. VICKERS's father is .Review of Systems:ConstitutionalNo fevers, chills, night sweats, excessive fatigue or weight loss.Allergic/ImmunologicNo reactions.Headno recent head injury;EyesNo significant visual difficulties. No diplopia.ENMTNo problems with hearing, no sore throat, no sinus drainage.NeckEndocrineNo diabetes, thyroid disease or hormone replacement. No hot flashes or nightsweats.Hematologic/LymphaticNo easy bruising or bleeding. The patient denies any tender or palpable lymphnodes.BreastsNo abnormal masses of breast, no nipple discharge or pain.RespiratoryNo dyspnea on exertion, chest pain, cough or hemoptysis.CardiovascularNo anginal chest pain, palpitations or orthopnea.GastrointestinalNo nausea, vomiting, diarrhea, GI bleeding, or constipation. No change inbowel habits, no heartburn or early satiety.Genitourinary (M)No hematuria, dysuria, increased frequency, urgency, hesitancy orincontinence.MusculoskeletalNo joint pain, swelling or redness. No decreased range of motion.IntegumentaryNo chronic rashes, inflammation, ulcerations or skin changes.NeurologicNo headache, blurred vision, and no areas of focal weakness or numbness.Normal gait. No sensory problems.PsychiatricNo insomnia, depression, sabrina or mood swings. No psychotropic drugs.Vital Sign s:Performed on Jan 22, 2020 08:54Eceguh21 ppFmcabk037 lbsBSA (derived)2.10 sq.mBMI34.27Umexmfxvsxl86.4 RXdiab522 /min(HIGH)Bbrqkbdjrvu78 /bbqXO982/84Pulse Oximetry (O2 Sat)97 %Fall RiskLow RiskPerformance Status:0 - Fully active, able to carry on all predisease activities withoutrestrictions. (ECOG)Physical Exam:ConstitutionalNormal - Alert, cooperative, oriented. Mood and affect appropriate. Appearsclose to chronological age. Well nourished. Well developed.HeadNormal - Normocephalic; no scars.EyesNormal - Conjunctivae and sclerae are clear and without icterus. Pupils arereactive and equal.ENMTNormal - Sinuses are nontender. No oral exudates, ulcers, masses, thrush ormucositis. Oropharynx clear. Tongue normal.NeckNormal - Supple without masses or thyromegaly. No jugular venous distension.Hematologic/LymphaticNormal - No petechiae or purpura. No tender or palpable lymph nodes in thecervical, supraclavicular, axillary or inguinal area.RespiratoryNormal - Lungs are clear to auscultation without rhonchi or wheezing. Not InCardiac DistressCardiovascularNormal - cardiac heart sounds present; no tenderness during chest palpation;not in cardiac distress.ChestNormal - Chest is symmetric without chest wall deformities.AbdomenNormal - Non-tender, non-distended, no masses, ascites or hepatosplenomegaly.Good bowel sounds. No guarding or rebound tenderness. No pulsatile masses.GenitourinaryNormal - no bladder distention;Back/SpineNormal - No kyphosis, scoliosis, compression fractures. Non-tender topalpation.ExtremitiesNormal - No visible deformities, no cyanosis, clubbing or edema. Pulses 4+ andequal bilaterally.MusculoskeletalNormal - No tenderness or swelling, normal range of motion without obviousweakness.IntegumentaryNormal - No rashes, scars, or lesions suggestive of malignancy.NeurologicNormal - No sensory or motor deficits, normal cerebellar function, normalgait, cranial nerves intact.PsychiatricNormal - Alert and oriented times three. Coherent speech. Verbalizesunderstanding of our discu ssions today.Laboratory:Test performed on Jan 22, 2020 12:30ABG pH7.391ABG eEQ989.3 mmHgABG pO279.9 mmHg(LOW)ABG PME472.5 mmol/LABG O2 Sat (Calc)95.4 %Device / IoG4UENE AIRTest performed on Jan 22, 2020 12:20WBC6.55 x10E3/uLRBC4.75 x10E6/uLHGB14.7 g/dLHCT42.2 %MCV88.8 fLMCH30.9 plSOSQ60.8 g/dLRDW13.0 %Platelet Dwexy412 x10E3/uLMPV11.4 fl(HIGH)Neutrophils3.7 x10E3/uLLymphocytes1.9 x10E3/uLMonocytes0.6 x10E3/uLEosinophils0.2 x10E3/uLBasophils0.0 x10E3/uLImmature Grans0.1 x10E3/uLNeutrophil %56.9 %Lymphocyte %28.5 %Monocyte %9.5 %Eosinophil %3.7 %Basophils %0.6 %Immature Grans %0.8 %Other test results are not available for this patient.Impression:Periaortic and iliac lymphadenopathy. Elevated PSA. The patient adamantlydeveloped denies having a biopsy, the first 7 management would be a urologicalconsultation for a biopsy. The patient can also have a PET/CT. We can sendfor the patient's testosterone and PSA levels. I will see him after the biopsyresults.Plan:Urology consultation for biopsy.PET/CT.Send PSA antigen, total PSA, free PSA.Follow-up within 4 weeks for management.Electronically signed by: Dr. Gregorio LiCC: Name Value Range Interpretation Code Description Data Antionette rce(s) Supporting Document(s) ID Date Data Source ARTERIAL BLOOD GAS 01/23/2020 01:37:46 PM EDT eCW1 ([facility]) Name Value Range Interpretation Code Description Data Antionette rce(s) Supporting Document(s) 79.9 PO2 eCW1 ([facility]) 41.3 PCO2 eCW1 ([facility]) 95.4 %SATO2 eCW1 ([facility]) 7.391 PH eCW1 ([facility]) 24.5 HCO3(ABG) eCW1 ([facility]) -0.4 BASE EXCESS eCW1 ([facility]) 15.6 tHb eCW1 ([facility]) 94.7 FO2Hb eCW1 ([facility]) ROOM AIR DEVICE/FIO2 eCW1 ([facility]) 0.5 FMETHb eCW1 ([facility]) 0.2 CO eCW1 ([facility]) ID Date Data Source [id number] 01/22/2020 12:38:[facility] Name Value Range Interpretation Code Description Data Antionette rce(s) Supporting Document(s) PO2 79.9 mmHg 80-100 L [facility] PCO2 41.3 mmHg 35-50 N [facility] PH 7.391 7.360-7.440 N [facility] HCO3(ABG) 24.5 mmol/L 20-33 [facility] %SATO2 95.4 % 95-100 [facility] BASE EXCESS -0.4 mmol/L -3 TO +3 [facility] DEVICE/FIO2 ROOM AIR [facility] tHb 15.6 g/dL 12-18 [facility] FO2Hb 94.7 % 94.0-97.0 [facility] FMETHb 0.5 % 0.0-1.5 [facility] CO 0.2 % [facility] CARBOXYHEMOGLOBIN INTERPRET ATION % TOTAL HEMOGLOBIN NONSMOKER: <2% AVERAGE SMOKER: 4-5% 1-2 PACKS/DAY HEAVY SMOKER 8-12% >2 PACKS/DAY POTENTIALLY TOXIC: >15% ID Date Data Source [id number] 01/27/2020 11:06:00 PM EDT [facility] Performed at: [facility] [place] [address] [id number] Director: Karen Couch MD, Phone: [phone] Name Value Range Interpretation Code Description Data Antionette rce(s) Supporting Document(s) IgE 47 IU/mL 6-495 [facility] ID Date Data Source [id number] 01/27/2020 03:10:00 PM EDT [facility] Performed at: [facility] [place] [address] [id number] Director: Selina Reilly MD, Phone: [phone] at: [place] [id number] [place], [place] [id number] Director: Karen Couch MD, Phone: [phone] Name Value Range Interpretation Code Description Data Antionette rce(s) Supporting Document(s) IgG 981 mg/dL 603-1613 [facility] IgA 123 mg/dL 61-437 [facility] IgM 56 mg/dL 20-172 [facility] ID Date Data Source [id number] 01/27/2020 03:10:00 PM EDT [facility] Performed at: [facility] [address] [place] [address] [id number] Director: Selina Reilly MD, Phone: [phone] at: [facility] [address] [place], [place] [id number] Director: Karen Couch MD, Phone: [phone] Name Value Range Interpretation Code Description Data Antionette rce(s) Supporting Document(s) ALPHA 1 ANTITRY 113 mg/dL 101-187 [facility] PHENOTYPE (PI) MM . [facility] Phenotype Population A-1-AT Concentration* Incidence % % of MM (Typical Range) MM 86.5% 100% (96 - 189) MS 8.0% 86% (83 - 161) MZ 3.9% 61% (60 - 111) FM 0.4% 100% (93 - 191) SZ 0.3% 41% (42 - 75) SS 0.1% 64% (62 - 119) ZZ 0.05% 19% (16 - 38) FS 0.05% 70% (70 - 128) FZ Unknown 46% (44 - 88) FF Unknown Unknown*A-1-AT concentration in the homozygous MM phenotype is taken as the reference normal. Percent deficiency in each phenotype is reported relative to this reference. Ranges used to confirm phenotype. ID Date Data Source [id number] 01/22/2020 02:34:00 PM EDT [facility] Name Value Range Interpretation Code Description Data Antionette rce(s) Supporting Document(s) WBC 6.55 x10E3/uL 4.0-10.5 N [facility] RBC 4.75 x10E6/uL 4.70-6.00 [facility] Hemoglobin 14.7 g/dL 14.0-18.0 [facility] Hematocrit 42.2 % 42.0-52.0 [facility] MCV 88.8 fL 81.0-99.0 N [facility] MCH 30.9 pg 27.0-31.0 N [facility] MCHC 34.8 g/dL 32.7-35.6 [facility] RDW 13.0 % 11.5-14.0 N [facility] Platelet count 185 x10E3/uL 150-450 [facility] ital MPV 11.4 fl 6.9-9.5 H [facility] Neutrophils 56.9 % 34-64 N [facility] Lymphocytes 28.5 % 25-45 N [facility] Monocytes 9.5 % 1.7-10.6 [facility] Eosinophils 3.7 % 0.4-7.0 [facility] Basophils 0.6 % 0.1-2.0 [facility] Imm. Gran. 0.8 % 0.1-2.0 [facility] Abs. Neutro. 3.7 x10E3/uL 1.2-7.6 [facility] Abs. Lymph. 1.9 x10E3/uL 1.0-3.5 [facility] Abs. Park. 0.6 x10E3/uL 0.1-1.0 N [facility] Abs. Eosin. 0.2 x10E3/uL 0.1-0.7 [facility] Abs. Baso. 0.0 x10E3/uL 0.0-0.1 N [facility] Abs. Imm. Gran. 0.1 x10E3/uL 0.0-0.1 N [facility] pital ANRBC% 0 % 0 N [facility] ID Date Data Source [id number] 12/30/2019 03:32:00 PM EDT [facility] Exam Number: [id number]: CECILYRENEE DOANMau Luevano RStudy Date: 12/26/2019MRN: [id number]: 1950 Gender: MaleAge: 69 yrs Weight: 209 lbBSA: 2.1 m2 Height: 69 inBP: 134/95 mmHgReason For Study: ASSESS EFHistory: No prior cardiac interventionPerformed By: Renata Romero, ALVIN, RCCSProcedureA complete two- dimensional transthoracic echocardiogram was performed(2D, M-mode, spectral and color flow Doppler). Quality of study:adequate.Measurements with Normals IVSd: 1.2 cm(0.6-1.1 cm) LVIDd: 4.6 cm(3.5-5.7 cm)LVPWd: 1.2 cm(0.6-1.1 cm) LVIDs: 3.5 cm(2.3-3.6 cm)LA dimension: 3.3 cm(1.9-4.0 cm) Ao root diam: 3.0 cm(2.0- 3.9 cm)asc Aorta Diam: 3.7 cm(2.0-3.2cm)Doppler with NormalsMMode/2D Measurements & CalculationsACS: 1.9 cmLVOT diam: 2.1 cmEDV(MOD-sp4): 75.0 mlLVLs ap4: 6.7 cmESV(MOD-sp4): 34.0 mlEF(MOD-sp4): 54.7 %EF(MOD-sp2): 53.8 %SV(MOD- sp4): 41.0 mlLeft VentricleNormal left ventricular chamber size with an estimated ejectionfraction of 55-60 %. There is mild concentric left ventricularhypertrophy. Normal LV diastolic function. No regional wall motionabnormalities noted.Right VentricleThe right ventricle is normal in size and function.Left AtriumThe left atrial volume is normal. The interatrial septum is intactwith no evidence for an atrial septal defect.Right AtriumRight atrial size is normal.Aortic ValveNo significant valvular abnormalities. The aortic valve is normal instructure and function. The aortic valve is trileaflet. No aorticstenosis. No aortic regurgitation is present.Mitral ValveThe mitral valve leaflets appear normal. There is no evidence ofstenosis, fluttering, or prola pse. Mitral inflow velocity is normal.There is no mitral valve stenosis. There is no mitral regurgitationnoted.Tricuspid ValveStructurally normal tricuspid valve. There is trace tricuspidregurgitation. There was insufficient TR detected to calculate RVsystolic pressure. There is no tricuspid stenosis.Pulmonic ValveThe pulmonic valve is not well visualized. There is no pulmonicvalvular regurgitation. There is no pulmonic valvular stenosis.ArteriesThe aortic root is normal size. Mildly dilated ascending aorta.VenousThe inferior vena cava was not visualized during the exam.EffusionThere is no pericardial effusion.Interpretation SummaryNormal left ventricular chamber size with an estimated ejectionfraction of 55-60 %There .is mild concentric left ventricular hypertrophy.Normal LV diastolic function.The right ventricle is normal in size and function.No significant valvular abnormalitiesThere was insufficient TR detected to calculate RV systolic pressure.Mildly dilated ascending aorta.Report electronically signed in Xcel[employer] by: Lay Anderson MD,MPH, [facility] on 12/26/2019 12:11 PM Reported By: [facility] ANDERSON MD Signed By: LAY ANDERSON MD Name Value Range Interpretation Code Description Data Antionette rce(s) Supporting Document(s) ID Date Data Source [id number] 12/30/2019 03:32:00 PM EDT [facility] Exam Number: [id number] Reported By: - LAY ANDERSON MD Signed By: LAY ANDERSON MD Name Value Range Interpretation Code Description Data Antionette rce(s) Supporting Document(s) ID Date Data Source [id number] 12/27/2019 07:39:00 PM EDT [address] [id number] SUMMARYPATIENT NAME: MIGUEL VICKERS MR#: [id number] PHYSICIAN: OTILIA ROJAS DOAUTHOR: Otilia Rojas DO DATE: 12/26/19 RM#: [id number] DATE: 12/27/19 : 54Summary of HospitalizationReason for AdmissionShortness of breathHospital CoursePatient is a 69 years old male with past medical history significant forhypertension and prostate cancer diagnosed in 2017 presented to [facility] on 12/24/2019 with complaints of shortness of breath and weightgain. Patient was noted to have lower extremity edema and significant elevatedblood pressure. Patient was admitted on the hospitalist service for fluidoverload ruling out congestive heart failure. Serial troponins ordered.Echocardiogram ordered. Patient was giving IV Lasix for diuresis. Patientswelling and shortness of breath improved with the diuresis. Patient's bloodpressure was monitored closely while patient was on diuretic. Due to thepresent intermittent abdominal discomfort and history of prostate cancer, CT ofthe abdomen and pelvis was ordered. CT result came back positive for severalperiaortic and common iliac chain nodes with high suspicion for neoplasm. PET/CT was recommended. CT abdomen and pelvis result was discussed with thepatient and concern for malignancy and metastatic spread were discussed. On 12/27/2019, patient complains of recurrence of chest discomfort, headache and leftshoulder discomfort. Card iac enzyme was ordered. During the process ofcontinuing patient's work-up, patient decided to sign out AMA. 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 However, patient insistented on signing AMA. Theimportance of following up with primary care provider and oncology wasdiscussed with the patient multiple times prior to AMA.Per record, patient was diagnosed with prostate cancer in 2017. CT abdomenpelvis demonstrated multiple lymph nodes in the peritoneal space concerning formetastatic malignancy. [facility]Recommend patient follow-up with his new primary care provider after discharge.Attempt to establish patient with oncology in the outpatient setting. Howeverpatient stated he au think about following up after discharge.Procedures & Relevant StudiesStudiesCHEST SINGLE VIEWAP CHESTDATE OF EXAMINATION: 12/25/2019 18:21 EDTCHEST SINGLE VIEWINDICATION: Shortness of breathCOMPARISON: NoneTECHNIQUE: A single AP film of the chest was obtained.FINDINGS: The chest wall and mediastinal structures are unremarkable.There is no pleural disease. The lungs are clear.IMPRESSION: No acute pulmonary diseaseCT ANGIO CHEST WITH IV FOR PCT Chest and CT Pulmonary AngiogramDATE OF EXAMINATION: 12/25/2019 20:11 EDTCT ANGIO CHEST WITH IV FOR PEIndication: Shortness of breath, elevated d-dimer, feverComparison: NoneContrast: 75 cc Omnipaque 300Technique: Following administration of intravenous contrast, a CTscan was performed from the thoracic inlet through the upper abdomen.Simultaneously, a dynamic study of the pulmonary arterial system wasperformed.One or more of the following dose reduction techniques were utilizedin effectively lowering the radiation dose for this examination:Automated Exposure Control, Adjustment of the mA and/or kV accordingto patient size, or Iterative reconstruction.Findings:Angiogram: There is no evidence of pulmonary embolic disease. Nofilling defects are visualized in the pulmonary arterial system.There is no evidence of aortic dissection.CT Chest: The lungs are clear. There is no pleural or pericardialeffusion. There are no enlarged nodes. There are no adrenal masses.Impression: No evidence of pulmonary embolic disease.CT BRAIN W/O CONTRASTDATE OF EXAMINATION: 12/25/2019 22:45 EDTCT BRAIN W/O CONTRASTINDICATION: DizzinessCOMPARISON: None.This CT exam was performed using the following dose reductiontechniques: Automated exposure control, adjustment of mA and/or kVaccording to the patient's size, and use of iterative reconstructiontechnique.TECHNIQUE: Axial images were obtained from the lawrence magnum to thevertex.FINDINGS: There is evidence for left frontoparietal craniotomy. Nounderlying mass lesion. There is age-related atrophic change. Nointracranial bleeds, mass effect, or shift..IMPRESSION:Postoperative change. No acute intracranial abnormality.U/S VENOUS DOPP ARM/LEG BILADATE OF EXAMINATION: 12/26/2019 9:00 EDTU/S VENOUS DOPP ARM/LEG BILATHISTORY: Pain swelling DVTRIGHT LOWER EXTREMITY VENOUS DOPPLERDuplex scan was performed using B-mode/winter scale imaging and Dopplerspectral analysis and color flow.Common femoral and superficial femoral veins were interrogatedthroughout their course, revealing easy compressibility andappropriate augmentation. The popliteal vessels are also easilycompressible and show no signs of intraluminal thrombus formation.IMPRESSION:Negative study for deep venous thrombosis in the right LOWERextremity.LEFT LOWER EXTREMITY VENOUS DOPPLERDuplex scan was performed using B-mode/winter scale imaging and Dopplerspectral analysis and color flow.Common femoral and superficial femoral veins were interrogatedthroughout their course, revealing easy compressibility andappropriate augmentation. The popliteal vessels are also easilycompressible and show no signs of intraluminal thrombus formation.IMPRESSION:Negative study for deep venous thrombosis in the left LOWER extremity.CT ABD&PEL W/O IV OR ORAL CODATE OF EXAMINATION: 12/26/2019 8:53 EDTCT ABD&PEL W/O IV OR ORAL CONTHISTORY: Abdominal painTECHNIQUE:This CT exam was performed using the following dose reductiontechniques: automated exposure control, adjustment of mA and/or kVaccording to the patient's size, and use of iterative reconstructiontechnique.Standard contiguous axial spiral imaging was obtained from the dome ofthe diaphragms through the symphysis pubis without oral contrast andwithout intravenous contrast administration and with coronalreformatting.FINDINGS:Lower thorax: UnremarkableABDOMEN:Liver: Moderate fatty infiltrationGallbladder and bile ducts: UnremarkablePancreas: UnremarkableSpleen: UnremarkableAdrenals: UnremarkableKidneys and ureters: 0.7 cm parenchymal stone in the upper pole ofleft kidney. No hydronephrosis.Stomach and bowel: UnremarkableAppendix: No appendicitisPELVIS:Bladder: Unopacified, grossly unremarkableReproductive: Grossly unremarkableSeveral left periaortic and bilateral common iliac chain nodes arenoted, largest on the left side measuring 1.5 x 1 cm. The largest leftperiaortic node is approximately 1.8 x 0.8 cm. These are neoplasticuntil proven otherwise.IMPRESSION:Several periaortic and common iliac chain nodes as described above,neoplastic until proven otherwise. These may be more accuratelyassessed with a PET/CT.Nonobstructive stone upper pole of left kidney.Diagnoses (Current Visit)Problem List1. Prostate CAAssessment-According to PCPs notes from 10/14/2019, patient was told in 2006 he had aprostate cancer. At the time, patient was referred to urology and [facility].-CT abdomen pelvis demonstrated multiple lymph node involvement in theperitoneal space concerning for metastatic malignancy.2. Fluid overload3. Shortness of breath4. HTN (hypertension)5. Lower extremity edemaDiagnoses (Other)Past Pertinent History1. Fluid overload2. Shortness of breath3. HTN (hypertension)4. Lower extremity edema5. Prostate CAPatient's Discharge ConditionVital SignsVital Signs-LastResult Date TimePulse Ox 92 12/26 0538B/P 143/92 12/26 0538Temp 98.4 12/26 0538Pulse 80 12/26 0538Resp 18 12/26 0538Patient's Discharge ConditionDischarge Date 12/27/19Discharge Conditon other (AMA)Discharge DispositionAMAPhysical ExaminationGeneral Appearance no acute distress, afebrile, alert, awake, conversant, facesymetricalHead atraumatic, normocephalicENT moist mucosal membranesNeck no JVD, suppleCardiovascular regular rate, no murmur, no gallop, no rub, normal heart soundsRespiratory clear to auscultation, no distress, aerating well, symmetricexpansion, on oxygenAbdomen soft, non-tender, no distention, normal bowel sounds, no guarding, noreboundUrinary no bladder distention, no flank painGenitourinary (male) no flank painExtremities no clubbing, no cyanosis, 2+ pitting edema bilaterallyMus coskeletal normal inspectionNeurological alert, oriented x 3Psych/Mental Status normal affectPatient/Family InstructionsPrescriptionsStart taking the following new medications:Acetaminophen (Mapap) 325 MG [id number] MILLIGRAM Orally EVERY 8 HOURS, NEEDED as needed for HeadacheDays = 14 Qty = 42No RefillsFUROSEMIDE* (Lasix*) 20 MG [id number] MILLIGRAM Orally DAILY as needed for Fluid retentionDays = 7 Qty = 7No RefillsPOTASSIUM CHLORIDE (K-DUR*) 20 MEQ TAB.ER.PRT20 MILLIEQUIVELANT Orally DAILYDays = 7 Qty = 7No RefillsDischarge Activity: As toleratedDischarge diet: 2Gm SodiumFollow-upFollow up with your Primary care physician in 1 week.Establish with oncology after discharge.Time spent by provider to complete discharge > 30 minutesCopies ToCopies to Family Provider: HAVEN SOL FNP-CPltanesha copy CT abd/Pelv report to PCP.DATE SIGNED: 12/28/19 Electronically SignedTIME SIGNED: 1938 OTILIA ROJAS DO Name Value Range Interpretation Code Description Data Antionette rce(s) Supporting Document(s) ID Date Data Source [id number] 12/27/2019 10:18:00 AM EDT [address] [id number] NAME: MIGUEL VICKERS#: [id number] PHYSICIAN: OTILIA ROJAS DOACCOUNT #: [id number] ADM. DATE: 12/26/19PATIENT : 54 DISCH. DATE: [50}DISCHARGE SUMMARYMedical Discharge PlanPersonal Care InstructionsDischarge Activity: As toleratedDischarge diet: 2Gm SodiumProblem ListMedical ProblemsDehydrationFluid overloadGastroenteritis (Acute)HeadacheHTN (hypertension)Lower extremity edemaPartial small bowel obstruction (Acute)Prostate CAShortness of breathFollow Up CareFollow Up:Follow up with your Primary care physician in 1 week.Establish with oncology after discharge.END ENDDICT: 12/27/19 1018 Electronically SignedTRANS:12/27/19 1018 MARY MARCIAL BY:DATE SIGNED:12/28/19TIME SIGNED: 1938REPORT COPY TO: Name Value Range Interpretation Code Description Data Antionette rce(s) Supporting Document(s) ID Date Data Source [id number] 12/27/2019 08:48:00 AM EDT [facility] Name Value Range Interpretation Code Description Data Antionette rce(s) Supporting Document(s) WBC 5.93 x10E3/uL 4.0-10.5 N [facility] RBC 4.63 x10E6/uL 4.70-6.00 L [facility] Hemoglobin 14.1 g/dL 14.0-18.0 [facility] Hematocrit 40.5 % 42.0-52.0 [facility] MCV 87.5 fL 81.0-99.0 [facility] MCH 30.5 pg 27.0-31.0 [facility] MCHC 34.8 g/dL 32.7-35.6 [facility] RDW 13.1 % 11.5-14.0 [facility] Platelet count 176 x10E3/uL 150-450 [facility] ital MPV 10.8 fl 6.9-9.5 H [facility] Neutrophils 55.4 % 34-64 N [facility] Lymphocytes 27.5 % 25-45 [facility] Monocytes 11.3 % 1.7-10.6 H [facility] Eosinophils 4.6 % 0.4-7.0 N [facility] Basophils 0.5 % 0.1-2.0 N [facility] Imm. Gran. 0.7 % 0.1-2.0 [facility] Abs. Neutro. 3.3 x10E3/uL 1.2-7.6 [facility] Abs. Lymph. 1.6 x10E3/uL 1.0-3.5 N [facility] l Abs. Park. 0.7 x10E3/uL 0.1-1.0 [facility] Abs. Eosin. 0.3 x10E3/uL 0.1-0.7 [facility] l Abs. Baso. 0.0 x10E3/uL 0.0-0.1 [facility] Abs. Imm. Gran. 0.0 x10E3/uL 0.0-0.1 [facility] pital ANRBC% 0 % 0 [facility] ID Date Data Source [id number] 12/27/2019 08:35:00 AM EDT [facility] Name Value Range Interpretation Code Description Data Antionette rce(s) Supporting Document(s) GLU 109 mg/dL 70-110 [facility] Patients taking Sulfasalazine may have f alsely depressedGlucose levels. Patients taking Sulfapyridine may havefalsely elevated Glucose levels. Patients should be drawnfor Glucose before the initial administration of eitherdrug. BUN 14 mg/dL 7-23 [facility] CRE 0.785 mg/dL 0.500-1.300 [facility] GFR > 60 mL/min [facility] CHLORIDE 105 mmol/L 99-110 [facility] NA 143 mmol/L 136-147 [facility] POTASSIUM 3.8 mmol/L 3.5-5.1 [facility] TCO2 31 mmol/L 20-33 [facility] ANION GAP 10.8 10.0-20.0 [facility] CA 8.7 mg/dL 8.3-10.7 [facility] ID Date Data Source [id number] 12/27/2019 10:36:00 AM EDT [facility] COMMENTS TO LAB: add on Name Value Range Interpretation Code Description Data Antionette rce(s) Supporting Document(s) TROPI < 0.015 ng/mL 0.000-0.079 [facility] al ID Date Data Source [id number] 12/26/2019 12:48:00 PM EDT [facility] Exam Number: [id number] OF EXAMINATIO N: 12/26/2019 8:53 EDTCT ABD&PEL W/O IV OR ORAL CONTHISTORY: Abdominal painTECHNIQUE:This CT exam was performed using the following dose reductiontechniques: automated exposure control, adjustment of mA and/or kVaccording to the patient's size, and use of iterative reconstructiontechnique.Standard contiguous axial spiral imaging was obtained from the dome ofthe diaphragms through the symphysis pubis without oral contrast andwithout intravenous contrast administration and with coronalreformatting.FINDINGS:Lower thorax: UnremarkableABDOMEN:Liver: Moderate f atty infiltrationGallbladder and bile ducts: UnremarkablePancreas: UnremarkableSpleen: UnremarkableAdrenals: UnremarkableKidneys and ureters: 0.7 cm parenchymal stone in the upper pole ofleft kidney. No hydronephrosis.Stomach and bowel: UnremarkableAppendix: No appendicitisPELVIS:Bladder: Unopacified, grossly unremarkableReproductive: Grossly unremarkableSeveral left periaortic and bilateral common iliac chain nodes arenoted, largest on the left side measuring 1.5 x 1 cm. The largest leftperiaortic node is approximately 1.8 x 0.8 cm. These are neoplasticuntil proven otherwise.IMPRESSION:Several periaortic and common iliac chain nodes as described above,neoplastic until proven otherwise. These may be more accuratelyassessed with a PET/CT.Nonobstructive stone upper pole of left kidney.Electronically signed in PS360 by: Cruzito White M.D. 12/26/201912:40 EDT Reported By: - Carri WHITE M.D. Signed By: Carri WHITE M.D. Name Value Range Interpretation Code Description Data Antionette rce(s) Supporting Document(s) ID Date Data Source [id number] 12/26/2019 11:37:00 AM EDT [address] [id number] NOTEPATIENT NAME: MIGUEL VICKERS PHYSICIAN: OTILIA ROJAS DOAUTHOR: Munir Rojas DO. DATE: 12/26/19 MR#: [id number] NOTE DATE: 12/26/19 RM#: [id number] TIME: 1153 : 52SubjectiveEvents Since Last EntryPatient is seen and examined the room today. Patient stated his lowerextremity swelling is improving. Patient stated his shortness of breath alsoshowed some improvement but he is not back to his normal self at this moment.Patient also complained about few episodes of abdominal discomfort, which islocated in the mid lower abdomen lasting about few seconds during eachepisodes. Patient did not have regular follow-up with outpatient providerpreviously. He just recently established with a provider. He did not take anymedication at home.ObjectiveVital SignsVital Signs-24 HRS12/25017 0221 0600 1010Temp 97.8 98.7 97.9 97.8Pulse 100 82 84 112Resp 16B/P 149/89 120/87 138/94 156/112B/P MeanPulse Ox 93 92 96 94O2 DeliveryO2 Flow EqeqIvN7Rbbrrz/OutputIntake/Output Summary 24 hours12/24 0700Intake Total 300Output TotalBalance 300Intake, Oral 300Number 1UnmeasuredVoidsPatient 95.27 kgWeightCurrent MedicationsSodium Chloride (Saline Flush Syr(5ML)) 5 ML Q12H IVAcetaminophen (Tylenol) 650 MG Q6HPRN PRN POSodium Chloride (Saline Flush Syr(5ML)) 5 ML QIDPRN PRN IVNorepinephrine Bitartrate (Levophed) 4 MG TITRATE IV (CAN)Dextrose/Water (D5% 250ML) 250 MLExamGeneral Appearance no acute distress, afebrile, alert, awake, conversant, facesymetrical, mental status normalHead atraumatic, normocephalicENT moist m ucosal membranesNeck no JVD, suppleCardiovascular regular rate, no murmur, no gallop, no rub, normal heart soundsRespiratory clear to auscultation, no distress, aerating well, symmetricexpansion, on oxygenAbdomen soft, non-tender, no distention, normal bowel sounds, no guarding, noreboundGenitourinary (male) no flank painUrinary no bladder distention, no flank painExtremities no clubbing, no cyanosis, 2+ pitting edema bilaterallyMuscoskeletal normal inspectionNeurological alert, oriented x 3Psych/Mental Status normal affectResultsLaboratory DataRecent Labs-24 hours12/24 1840 2220 2220ChemistrySodium (136 - 147 mmol/L) 146Potassium (3.5 - 5.1 mmol/L) 4.1Chloride (99 - 110 mmol/L) 110Serum Bicarbonate (20 - 33 mmol/L) 28Anion Gap (10.0 - 20.0) 12.1BUN (7 - 23 mg/dL) 16Creatinine (0.500 - 1.300 mg/dL) 1.020Estimated GFR/1.73 m2 (mL/min) > 60Glucose (70 - 110 mg/dL) 144 HCalcium (8.3 - 10.7 mg/dL) 9.2Total Bilirubin (0.1 - 1.1 mg/dL) 0.4AST (8 - 40 U/L) 20ALT (6 - 54 U/L) 36Alkaline Phosphatase (45 - 117 U/L) 44 LCreatine Kinase (32 - 267 U/L) 315 HCK-MB (CK-2) (0.5 - 3.6 ng/mL) 3.8 HTroponin I (0.000 - 0.079 ng/mL) < 0.148Scs-C-Rkpvaxnynre Pept (0 - 125 pg/mL) 19Total Protein (6.0 - 7.8 g/dL) 7.4Albumin (3.5 - 5.0 g/dL) 4.1Globulin (2.3 - 3.5 g/dL) 3.3Albumin/Globulin Ratio (1.0 - 2.5) 1.2CoagulationINR (0.91 - 1.09) 0.93APTT (22.9 - 32.5 SECONDS) 21.0 LD-Dimer (mg/L) 0.64 HHematologyWBC (4.0 - 10.5 x10E3/uL) 6.34RBC (4.70 - 6.00 x10E6/uL) 4.76Hgb (14.0 - 18.0 g/dL) 14.6Hct (42.0 - 52.0 %) 41.5 LMCV (81.0 - 99.0 fL) 87.2MCH (27.0 - 31.0 pg) 30.7MCHC (32.7 - 35.6 g/dL) 35.2RDW (11.5 - 14.0 %) 13.2Plt Count (150 - 450 x10E3/uL) 200MPV (6.9 - 9.5 fl) 11.2 HImmature Gran % (Auto) (0.1 - 2.0 %) 0.9Neut % (Auto) (34 - 64 %) 65.9 HLymph % (Auto) (25 - 45 %) 19.1 LMono % (Auto) (1.7 - 10.6 %) 11.2 HEos % (Auto) (0.4 - 7.0 %) 2.4Baso % (Auto) (0.1 - 2.0 %) 0.5Abs Immat Gran (auto) (0.0 - 0.1 x10E3/uL) 0.1Absolute Neuts (auto) (1.2 - 7.6 x10E3/uL) 4.2Absolute Lymphs (auto) (1.0 - 3.5 1.2x10E3/uL)Absolute Monos (auto) (0.1 - 1.0 x10E3/uL) 0.7Absolute Eos (auto) (0.1 - 0.7 x10E3/uL) 0.2Absolute Basos (auto) (0.0 - 0.1 x10E3/uL) 0.0Nucleated RBC % (auto) (0 %) 0UrinesUrine Color YellowUrine Appearance ClearUrine pH (5.0 - 8.0) 5.0Ur Specific Kenyon (1.010 - 1.025) 1.023Urine Protein (Negative) NegativeUrine Ketones (NEGATIVE) TraceUrine Blood (NEGATIVE) NegativeUrine Nitrite (Negative) NegativeUr Bilirubin Confirm (NEGATIVE) NegativeUrine Urobilinogen (0.2 - 1.0 mg/dL) 0.2Urine WBC (Negative) NegativeUr Random Creatinine (mg/dL) 160.0Protein/Creatinin Ratio (0 - 200 mg/g) 111Urine Glucose (NEGATIVE) NegativeUrine Total Protein (mg/dL) 17.706/043715YsewdicycFfmiul (136 - 147 mmol/L) 14 6Potassium (3.5 - 5.1 mmol/L) 3.9Chloride (99 - 110 mmol/L) 108Serum Bicarbonate (20 - 33 mmol/L) 32Anion Gap (10.0 - 20.0) 9.9 LBUN (7 - 23 mg/dL) 17Creatinine (0.500 - 1.300 mg/dL) 0.789Estimated GFR/1.73 m2 (mL/min) > 60Glucose (70 - 110 mg/dL) 106Calcium (8.3 - 10.7 mg/dL) 9.0HematologyWBC (4.0 - 10.5 x10E3/uL) 7.51RBC (4.70 - 6.00 x10E6/uL) 4.80Hgb (14.0 - 18.0 g/dL) 14.8Hct (42.0 - 52.0 %) 42.3MCV (81.0 - 99.0 fL) 88.1MCH (27.0 - 31.0 pg) 30.8MCHC (32.7 - 35.6 g/dL) 35.0RDW (11.5 - 14.0 %) 13.4Plt Count (150 - 450 x10E3/uL) 190MPV (6.9 - 9.5 fl) 11.1 HImmature Gran % (Auto) (0.1 - 2.0 %) 0.8Neut % (Auto) (34 - 64 %) 57.1Lymph % (Auto) (25 - 45 %) 27.8Mono % (Auto) (1.7 - 10.6 %) 9.7Eos % (Auto) (0.4 - 7.0 %) 4.1Baso % (Auto) (0.1 - 2.0 %) 0.5Abs Immat Gran (auto) (0.0 - 0.1 x10E3/uL) 0.1Absolute Neuts (auto) (1.2 - 7.6 x10E3/uL) 4.3Absolute Lymphs (auto) (1.0 - 3.5 x10E3/uL) 2.1Absolute Monos (auto) (0.1 - 1.0 x10E3/uL) 0.7Absolute Eos (auto) (0.1 - 0.7 x10E3/uL) 0.3Absolute Basos (auto) (0.0 - 0.1 x10E3/uL) 0.0Nucleated RBC % (auto) (0 %) 0Assessment/PlanProblem List1. Fluid overloadA&P- Patient [facility] with complaints ofshortness of breath. Patient also demonstrated peripheral swelling andsignificant weight gain. Echocardiogram ordered to rule out any possiblecongestive heart failure.-Patient symptoms show some improvement with IV Lasix today. Will monitorpatient fluid status closely and give diuretic as tolerated.2. Shortness of breathA&P-Patient presented with shortness of breath with mild elevation of d-dimer.Troponin was negative. Lower extremity Doppler demonstrated no DVTbilaterally. CT angiogram demonstrated no evidence of pulmonary embolicdisease.-Echocardiogram ordered.-Patient has a history of partial small bowel obstruction, seen bygastroenteritis in August 2019. Patient is complaining intermittentabdominal discomfort. CT abdomen pelvis ordered.3. HTN (hypertension)A&P-Patient has a history hypertension. Patient has not been taking any bloodpressure medications. Currently patient is on Lasix for diuresis. Will adjustblood pressure medication as needed4. Lower extremity edemaA&P-Lower extremity Doppler demonstrated no DVT. Patient has received IV Lasixfor fluid removal. Lower extremity edema is improving.Resuscitation status Full codeVTE ProphylaxisVTE Prophylaxis: TEDs ordered.DATE SIGNED: 12/28/19 Electronically SignedTIME SIGNED: 1938 OTILIA ROJAS DO Name Value Range Interpretation Code Description Data Antionette rce(s) Supporting Document(s) ID Date Data Source [id number] 12/26/2019 08:43:00 AM EDT [facility] Exam Number: [id number] OF EXAMINATIO N: 12/26/2019 9:00 EDTU/S VENOUS DOPP ARM/LEG BILATHISTORY: Pain swelling DVTRIGHT LOWER EXTREMITY VENOUS DOPPLERDuplex scan was performed using B-mode/winter scale imaging and Dopplerspectral analysis and color flow.Common femoral and superficial femoral veins were interrogatedthroughout their course, revealing easy compressibility andappropriate augmentation. The popliteal vessels are also easilycompressible and show no signs of intraluminal thrombus formation.IMPRESSION:Negative study for deep venous thrombosis in the right LOWERextremity.LEFT LOWER EXTREMITY VENOUS DOPPLERDuplex scan was performed using B-mode/winter scale imaging and Dopplerspectral analysis and color flow.Common femoral and superficial femoral veins were interrogatedthroughout their course, revealing easy compressibility andappropriate augmentation. The popliteal vessels are also easilycompressible and show no signs of intraluminal thrombus formation.IMPRESSION:Negative study for deep venous thrombosis in the left LOWER extremity.Electronically signed in PS360 by: Cruzito White M.D. 12/26/20198:36 EDT Reported By: Freedom WHITE M.D. Signed By: Carri WHITE M.D. Name Value Range Interpretation Code Description Data Antionette rce(s) Supporting Document(s) ID Date Data Source [id number] 12/26/2019 01:20:00 PM EDT [facility] COMMENTS TO LAB: add on Name Value Range Interpretation Code Description Data Antionette rce(s) Supporting Document(s) TROPI < 0.015 ng/mL 0.000-0.079 [facility] ID Date Data Source [id number] 12/26/2019 05:43:00 AM EDT [facility] Exam Number: [id number] OF EXAMINATIO N: 12/25/2019 22:45 EDTCT BRAIN W/O CONTRASTINDICATION: DizzinessCOMPARISON: None.This CT exam was performed using the following dose reductiontechniques: Automated exposure control, adjustment of mA and/or kVaccording to the patient's size, and use of iterative reconstructiontechnique.TECHNIQUE: Axial images were obtained from the lawrence magnum to thevertex.FINDINGS: There is evidence for left frontoparietal craniotomy. Nounderlying mass lesion. There is age-related atrophic change. Nointracranial bleeds, mass effect, or shift..IMPRESSION:Postoperative change. No acute intracranial abnormality.Electronically signed in PS360 by: Celia Mercado M.D. 12/26/2019 5:36EDT Reported By: - CELIA MERCADO M.D. Signed By: CELIA MERCADO M.D. Name Value Range Interpretation Code Description Data Antionette rce(s) Supporting Document(s) ID Date Data Source [id number] 12/26/2019 07:19:00 AM EDT [facility] Name Value Range Interpretation Code Description Data Antionette rce(s) Supporting Document(s) GLU 106 mg/dL 70-110 [facility] Patients taking Sulfasalazine may have f alsely depressedGlucose levels. Patients taking Sulfapyridine may havefalsely elevated Glucose levels. Patients should be drawnfor Glucose before the initial administration of eitherdrug. BUN 17 mg/dL 7-23 [facility] CRE 0.789 mg/dL 0.500-1.300 [facility] GFR > 60 mL/min [facility] CHLORIDE 108 mmol/L 99-110 [facility] NA 146 mmol/L 136-147 [facility] POTASSIUM 3.9 mmol/L 3.5-5.1 [facility] TCO2 32 mmol/L 20-33 [facility] ANION GAP 9.9 10.0-20.0 L [facility] CA 9.0 mg/dL 8.3-10.7 [facility] ID Date Data Source [id number] 12/26/2019 06:29:00 AM EDT [facility] Name Value Range Interpretation Code Description Data [facility] rce(s) Supporting Document(s) WBC 7.51 x10E3/uL 4.0-10.5 [facility] RBC 4.80 x10E6/uL 4.70-6.00 [facility] Hemoglobin 14.8 g/dL 14.0-18.0 [facility] Hematocrit 42.3 % 42.0-52.0 [facility] MCV 88.1 fL 81.0-99.0 [facility] MCH 30.8 pg 27.0-31.0 [facility] MCHC 35.0 g/dL 32.7-35.6 [facility] RDW 13.4 % 11.5-14.0 [facility] Platelet count 190 x10E3/uL 150-450 N [facility] MPV 11.1 fl 6.9-9.5 H [facility] Neutrophils 57.1 % 34-64 [facility] Lymphocytes 27.8 % 25-45 N [facility] Monocytes 9.7 % 1.7-10.6 N [facility] Eosinophils 4.1 % 0.4-7.0 N [facility] Basophils 0.5 % 0.1-2.0 N [facility] Imm. Gran. 0.8 % 0.1-2.0 N [facility] Abs. Neutro. 4.3 x10E3/uL 1.2-7.6 [facility] Abs. Lymph. 2.1 x10E3/uL 1.0-3.5 [facility] Abs. Park. 0.7 x10E3/uL 0.1-1.0 N [facility] Abs. Eosin. 0.3 x10E3/uL 0.1-0.7 N [facility] Abs. Baso. 0.0 x10E3/uL 0.0-0.1 N [facility] Abs. Imm. Gran. 0.1 x10E3/uL 0.0-0.1 N [facility] pital ANRBC% 0 % 0 N [facility] ID Date Data Source [id number] 12/25/2019 11:14:00 PM EDT [facility] [address] [address]WMMASIS AND PHYSICALPATIENT NAME: MIGUEL VICKERS Charmaine MR#: [id number] PHYSICIAN: SANDOR GIBSON MDAUTHOR: Sandor Gibson MD DATE: 12/25/19 RM#: [id number] & PHYSICAL DATE: 12/25/19 : 52EVALUATION TIME: 0002HistoryChief Complaint/Admit ReasonShortness of breathHistory of Presenting [id number] white male with past medical history of hypertension, prostatecancer diagnosed 2016 who presented to the ED with complaints of shortness ofbreath which is been ongoing for 1-1/2 weeks now also reports a 40 pound weightgain. Has noted lower extremity edema. Patient reports shortness of breath ismostly on exertion. In the ED patient was noted to have blood pressure 198/122patient was given sublingual nitro and blood pressure decreased to 165 andsubsequently into the 130. Patient reports he checked his blood pressure athome and usually ranges between 130-1 40 systolics over 70-80 diastolic he hasself discontinued himself from his blood pressure meds for 5 years now. Healso reports of a headache 8 out of 10 and also reports of dizziness andunsteady gait and blurry vision for about 1 month. Denies any chest pain,nausea, vomiting. Reports some diaphoresis yesterday. Denies any cough, bodyaches, loss of taste or smell. D-dimer was mildly elevated chest x- ray did notshow any acute findings, CT angiogram of the chest was negative for PE ordissection. Patient also reports having some pain in the legs.Past Medical/Surgical HistoryPast Medical/Surgical HistoryMedical ProblemsDehydrationGastroenteritis (Acute)HeadacheHTN (hypertension)Lower extremity edemaPartial small bowel obstruction (Acute)Shortness of breathReconciled Home Med ListSee Reconciled Home Medication ListAllergiesCoded Allergies:Saunders And Derivatives (SWELLING OF HANDS AND LIPS 12/26/19)No Known Drug Allergies (08/19/19)Family history Father at the age of 41 from alcoholism. Mother inher 90s from old age.Social History no alcohol use, no recreational drug use, quit smokingReview of SystemsAdditional notes13 point review of systems done all negative except for as noted in HPI.ExamVital SignsVital Signs:18:17 BP 198 / 122; Pulse 121; Resp 32; Temp 99.9(TE); Pulse Ox 95% on R/A;Weight 97.6 kg (M); Pain 0/10;18:19 BP 198 / 122 (auto/); Pulse 116 MON;18:20 Pulse 122 MON; Resp 33; Pulse Ox 96% ;18:27 BP 177 / 119 (auto/); Pulse 128 MON;18:28 Pulse 120 MON; Resp 22; Pulse Ox 96% ;18:31 BP 165 / 106 (auto/); Pulse 119 MON;18:32 Pulse 122 MON; Resp 24; Pulse Ox 96% ;18:46 BP 163 / 99 (auto/); Pulse 120 MON;18:47 Pulse 121 MON; Resp 27; Pulse Ox 98% ;19:01 BP 170 / 104 (auto/); Pulse 119 MON;19:02 Pulse 115 MON; Resp 25; Pulse Ox 98% ;19:31 BP 139 / 97 (auto/); Pulse 130 MON;19:32 Pulse 132 MON; Resp 25; Pulse Ox 94% ;19:46 BP 150 / 90 (auto/); Pulse 118 MON;19:46 Pulse 117 MON; Resp 25; Pulse Ox 93% ;20:01 BP 149 / 94 (auto/); Pulse 112 MON;20:01 Pulse 111 MON; Resp 26; Pulse Ox 96% ;20:16 BP 134 / 95 (auto/); Pulse 111 MON;20:17 Pulse 113 MON; Resp 24; Pulse Ox 95% ;20:52 BP 160 / 101 (auto/); Pulse 104 MON; Resp 28; P ulse Ox 97%21:01 BP 133 / 93 (auto/); Pulse 104 MON; Resp 23; Pulse Ox 96%Physical ExaminationGeneral Appearance no acute distress, afebrile, alert, awake, conversant, facesymetrical, mental status normalHead atraumatic, normocephalicENT moist mucosal membranesEye AssessementAssessment: normal scleraNeck no JVD, suppleCardiovascular regular rate, no murmur, no gallop, no rub, normal heart soundsRespiratory clear to auscultation, no distress, aerating well, symmetricexpansion, on oxygenAbdomen soft, non-tender, no distention, normal bowel sounds, no guarding, noreboundUrinary no bladder distention, no flank painGenitourinary (male) no flank painExtremities no clubbing, no cyanosis, 2+ pitting edema bilaterallyMuscoskeletal normal inspectionNeurological alert, oriented x 3Skin AssessmentSkin dry, wa rmPsych/Mental Status normal affectData ReviewLaboratory DataRecent Labs-48 hours12/24 1840 2220 2220ChemistrySodium (136 - 147 mmol/L) 146Potassium (3.5 - 5.1 mmol/L) 4.1Chloride (99 - 110 mmol/L) 110Serum Bicarbonate (20 - 33 mmol/L) 28Anion Gap (10.0 - 20.0) 12.1BUN (7 - 23 mg/dL) 16Creatinine (0.500 - 1.300 mg/dL) 1.020Estimated GFR/1.73 m2 (mL/min) > 60Glucose (70 - 110 mg/dL) 144 HCalcium (8.3 - 10.7 mg/dL) 9.2Total Bilirubin (0.1 - 1.1 mg/dL) 0.4AST (8 - 40 U/L) 20ALT (6 - 54 U/L) 36Alkaline Phosphatase (45 - 117 U/L) 44 LCreatine Kinase (32 - 267 U/L) 315 HCK-MB (CK-2) (0.5 - 3.6 ng/mL) 3.8 HTroponin I (0.000 - 0.079 ng/mL) < 0.414Zfw-G-Rosiodpsqtq Pept (0 - 125 pg/mL) 19Total Protein (6.0 - 7.8 g/dL) 7.4Albumin (3.5 - 5.0 g/dL) 4.1Globulin (2.3 - 3.5 g/dL) 3.3Albumin/Globulin Ratio (1.0 - 2.5) 1.2CoagulationINR (0.91 - 1.09) 0.93APTT (22.9 - 32.5 SECONDS) 21.0 LD-Dimer (mg/L) 0.64 HHematologyWBC (4.0 - 10.5 x10E3/uL) 6.34RBC (4.70 - 6.00 x10E6/uL) 4.76Hgb (14.0 - 18.0 g/dL) 14.6Hct (42.0 - 52.0 %) 41.5 LMCV (81.0 - 99.0 fL) 87.2MCH (27.0 - 31.0 pg) 30.7MCHC (32.7 - 35.6 g/dL) 35.2RDW (11.5 - 14.0 %) 13.2Plt Count (150 - 450 x10E3/uL) 200MPV (6.9 - 9.5 fl) 11.2 HImmature Gran % (Auto) (0.1 - 2.0 %) 0.9Neut % (Auto) (34 - 64 %) 65.9 HLymph % (Auto) (25 - 45 %) 19.1 LMono % (Auto) (1.7 - 10.6 %) 11.2 HEos % (Auto) (0.4 - 7.0 %) 2.4Baso % (Auto) (0.1 - 2.0 %) 0.5Abs Immat Gran (auto) (0.0 - 0.1 x10E3/uL) 0.1Absolute Neuts (auto) (1.2 - 7.6 x10E3/uL) 4.2Absolute Lymphs (auto) (1.0 - 3.5 1.2x10E3/uL)Absolute Monos (auto) (0.1 - 1.0 x10E3/uL) 0.7Absolute Eos (auto) (0.1 - 0.7 x10E3/uL) 0.2Absolute Basos (auto) (0.0 - 0.1 x10E3/uL) 0.0Nucleated RBC % (auto) (0 %) 0UrinesUrine Color YellowUrine Appearance ClearUrine pH (5.0 - 8.0) 5.0Ur Specific Ken[place] (1.010 - 1.025) 1.023Urine Protein (Negative) NegativeUrine Ketones (NEGATIVE) TraceUrine Blood (NEGATIVE) NegativeUrine Nitrite (Negative) NegativeUr Bilirubin Confirm (NEGATIVE) NegativeUrine Urobilinogen (0.2 - 1.0 mg/dL) 0.2Urine WBC (Negative) NegativeUr Random Creatinine (mg/dL) 160.0Protein/Creatinin Ratio (0 - 200 mg/g) 111Urine Glucose (NEGATIVE) NegativeUrine Total Protein (mg/dL) 17.7ImagingDATE OF EXAMINATION: 12/25/2019 18:21 EDTCHEST SINGLE VIEWINDICATION: Shortness of breathCOMPARISON: NoneTECHNIQUE: A single AP film of the chest was obtained.FINDINGS: The chest wall and mediastinal structures are unremarkable.There is no pleural disease. The lungs are clear.IMPRESSION: No acute pulmonary diseaseCT Chest and CT Pulmonary AngiogramDATE OF EXAMINATION: 12/25/2019 20:11 EDTCT ANGIO CHEST WITH IV FOR PEIndication: Shortness of breath, elevated d-dimer, feverComparison: NoneContrast: 75 cc Omnipaque 300Technique: Following administration of intravenous contrast, a CTscan was performed from the thoracic inlet through the upper abdomen.Simultaneously, a dynamic study of the pulmonary arterial system wasperformed.One or more of the following dose reduction techniques were utilizedin effectively lowering the radiation dose for this examination:Automated Exposure Control, Adjustment of the mA and/or kV accordingto patient size, or Iterative reconstruction.Findings:Angiogram: There is no evidence of pulmonary embolic disease. Nofilling defects are visualized in the pulmonary arterial system.There is no evidence of aortic dissection.CT Chest: The lungs are clear. There is no pleural or pericardialeffusion. There are no enlarged nodes. There are no adrenal masses.Impression: No evidence of pulmonary embolic disease.Cardiology/EKGEKG: Sinus tachycardia 116bpm. LVH. No acute ST/T abnormalities.Assessment/PlanDiagnosis/Problem1. Shortness of breathA&PDyspnea on exertion with 40 pound weight gain, LLE edema , weight gain, but proBNP normal. DDx includes CHF, Pulm HTN. CXR normal, CTA chest with no PE. No cp, EKG with no acute findings.- admit to telemetry- first set trop is negative, trend trops- echocardiogram in the morning- lasix 20mg iv x1 in the ED for elevated BP and LE edema- monitor electrolytes while on lasix2. HTN (hyper tension)A&PElevated BP in the ER with BP in the 190s systolic given sublingual nitro inthe ED and BP dropped to 130s systolic but BP back up again. Patient selfdiscontinued his BP meds 5 yeats ago.- trial low dose lasix for elevated BP with LE edema, no improvement in BP willconsider starting an antihypertensive agent.- monitor BP3. Lower extremity edemaA&P- trial of lasix- echocardiogram in the morning- pt report leg pain so will get b/l vnous duplex of B/L LE r/o DVT given mildelevation in dDIMER.4. HeadacheA&PPatient complains of headache blurry vision and lightheadedness.-We will get a CT of the head rule out any intracranial abnormality.Resuscitation status Full codePlan discussed with patientCase discussed with nursing staffCopies ToCopies to Family Provider: HAVEN SOL FNP-CCQM VTE HISTORYVTE HISTORYPrior VTE? NoDATE SIGNED: 12/26/19 Electronically SignedTIME SIGNED: [id number] SANDOR GIBSON MD Name Value Range Interpretation Code Description Data Antionette rce(s) Supporting Document(s) ID Date Data Source [id number] 12/25/2019 11:11:00 PM [facility] Name Value Range Interpretation Code Description Data Antionette rce(s) Supporting Document(s) PROT/CREA RATIO 111 mg/g 0-200 [facility] 160.0 mg/dL [facility] URINE TOT PROT. 17.7 mg/dL [facility] ID Date Data Source [id number] 12/25/2019 10:35:00 PM EDT [facility] Name Value Range Interpretation Code Description Data Antionette rce(s) Supporting Document(s) URINE COLOR Yellow N [facility] UAPR Clear N [facility] UGLU Negative NEGATIVE N [facility] URINE BILIRUBIN Negative NEGATIVE N [facility] al UKET Trace NEGATIVE [facility] USG 1.023 1.010-1.025 [facility] UBLO Negative NEGATIVE [facility] UpH 5.0 5.0-8.0 [facility] UPRO Negative Negative [facility] UUB 0.2 mg/dL 0.2-1.0 [facility] UNIT Negative Negative N [facility] ULEU Negative Negative N [facility] ID Date Data Source [id number] 12/25/2019 09:28:00 PM EDT [facility] Exam Number: [id number] Chest and CT Pu lmonary AngiogramDATE OF EXAMINATION: 12/25/2019 20:11 EDTCT ANGIO CHEST WITH IV FOR PEIndication: Shortness of breath, elevated d-dimer, feverComparison: NoneContrast: 75 cc Omnipaque 300Technique: Following administration of intravenous contrast, a CTscan was performed from the thoracic inlet through the upper abdomen.Simultaneously, a dynamic study of the pulmonary arterial system wasperformed.One or more of the following dose reduction techniques were utilizedin effectively lowering the radiation dose for this examination:Automated Exposure Control, Adjustment of the mA and/or kV accordingto patient size, or Iterative reconstruction.Findings:Angiogram: There is no evidence of pulmonary embolic disease. Nofilling defects are visualized in the pulmonary arterial system.There is no evidence of aortic dissection.CT Chest: The lungs are clear. There is no pleural or pericardialeffusion. There are no enlarged nodes. There are no adrenal masses.Impression: No evidence of pulmonary embolic disease.Electronically signed in PS360 by: Celia Mercado M.D. 12/25/2019 21:20EDT Reported By: Freedom MERCADO M.D. Signed By: CELIA MERCADO M.D. Name Value Range Interpretation Code Description Data Antionette rce(s) Supporting Document(s) ID Date Data Source [id number] 12/25/2019 07:29:00 PM EDT [facility] Exam Number: [id number] CHESTDATE OF EX AMINATION: 12/25/2019 18:21 EDTCHEST SINGLE VIEWINDICATION: Shortness of breathCOMPARISON: NoneTECHNIQUE: A single AP film of the chest was obtained.FINDINGS: The chest wall and mediastinal structures are unremarkable.There is no pleural disease. The lungs are clear.IMPRESSION: No acute pulmonary diseaseElectronically signed in PS360 by: Celia Mercado M.D. 12/25/2019 19:21EDT Reported By: Freedom MERCADO M.D. Signed By: CELIA MERCADO M.D. Name Value Range Interpretation Code Description Data Antionette rce(s) Supporting Document(s) ID Date Data Source [id number] 12/25/2019 07:37:00 PM EDT [facility] Name Value Range Interpretation Code Description Data Antionette rce(s) Supporting Document(s) NT-PROBNP 19 pg/mL 0-125 N [facility] ID Date Data Source [id number] 12/25/2019 07:33:00 PM EDT [facility] Name Value Range Interpretation Code Description Data Antionette rce(s) Supporting Document(s) TROPI < 0.015 ng/mL 0.000-0.079 N [facility] ID Date Data Source [id number] 12/25/2019 07:33:00 PM EDT [facility] Name Value Range Interpretation Code Description Data Antionette rce(s) Supporting Document(s) MMB 3.8 ng/mL 0.5-3.6 H [facility] ID Date Data Source [id number] 12/25/2019 07:33:00 PM EDT [facility] Name Value Range Interpretation Code Description Data [facility](s) Supporting Document(s) CKI 315 U/L 32-267 H [facility] ID Date Data Source [id number] 12/25/2019 07:33:00 PM EDT [facility] Name Value Range Interpretation Code Description Data Antionette [facility](s) Supporting Document(s) GLU 144 mg/dL 70-110 H [facility] Patients taking Sulfasalazine may have f alsely depressedGlucose levels. Patients taking Sulfapyridine may havefalsely elevated Glucose levels. Patients should be drawnfor Glucose before the initial administration of eitherdrug. BUN 16 mg/dL 7-23 [facility] CRE 1.020 mg/dL 0.500-1.300 [facility] GFR > 60 mL/min [facility] CHLORIDE 110 mmol/L 99-110 [facility] NA 146 mmol/L 136-147 [facility] POTASSIUM 4.1 mmol/L 3.5-5.1 [facility] TCO2 28 mmol/L 20-33 [facility] ANION GAP 12.1 10.0-20.0 [facility] CA 9.2 mg/dL 8.3-10.7 [facility] ALKALINE PHOS 44 U/L 45-117 L [facility] TP 7.4 g/dL 6.0-7.8 [facility] ALB 4.1 g/dL 3.5-5.0 [facility] ESRD Dialysis patient Albumin reference range: 2.9-4.4 g/dL GL 3.3 g/dL 2.3-3.5 [facility] A/G 1.2 1.0-2.5 [facility] T. BILIRUBIN 0.4 mg/dL 0.1-1.1 [facility] The [employer] Total Bilirubin is n ot recommended forpatients undergoing treatment with eltrombopag (Promacta)due to the potential for falsely elevated results. ALTI 36 U/L 6-54 [facility] Patients taking Sulfasalazine and/or Sul fapyridine may havefalsely depressed ALT levels. Patients should be drawn forALT before the initial administration of either drug. AST 20 U/L 8-40 [facility] Patients taking Sulfasalazine and/or Sul fapyridine may havefalsely depressed AST levels. Patients should be drawn forAST before the initial administration of either drug. ID Date Data Source [id number] 12/25/2019 07:29:00 PM EDT [facility] Name Value Range Interpretation Code Description Data Antionette rce(s) Supporting Document(s) D-DIMER 0.64 mg/L [facility] CUT OFF VALUE = 0.5 mg/L The negative pr edictive value for DVT or PE is at 98% whenthe result is below the cut off. ID Date Data Source [id number] 12/25/2019 07:17:00 PM EDT [facility] ANTI-COAGULANTS PT.IS TAKING: None Name Value Range Interpretation Code Description Data Antionette rce(s) Supporting Document(s) APTT 21.0 SECONDS 22.9-32.5 [facility] ID Date Data Source [id number] 12/25/2019 07:17:00 PM EDT [facility] ANTI-COAGULANTS PT.IS TAKING: None Name Value Range Interpretation Code Description Data [facility] rce(s) Supporting Document(s) INR 0.93 0.91-1.09 [facility] INR THERAPEUTIC RANGES Prophylaxis of ve nous thrombosis ] (high risk surgery) ]Treatment of venous thrombosis ]Treatment of pulmonary embolism ]Prevention of systemic embolism ] 2.0-3.0Tissue heart valves ]Acute myocardial infarction ]Valvular disease ]Atrial fibrillation ]Recurrent systemic embolism ] Mechanical prosthetic heart valves -------- 2.5-3.5 ID Date Data Source [id number] 12/25/2019 07:01:00 PM EDT [facility] Name Value Range Interpretation Code Description Data Antionette rce(s) Supporting Document(s) WBC 6.34 x10E3/uL 4.0-10.5 [facility] RBC 4.76 x10E6/uL 4.70-6.00 [facility] Hemoglobin 14.6 g/dL 14.0-18.0 [facility] Hematocrit 41.5 % 42.0-52.0 L [facility] MCV 87.2 fL 81.0-99.0 N [facility] MCH 30.7 pg 27.0-31.0 N [facility] MCHC 35.2 g/dL 32.7-35.6 N [facility] RDW 13.2 % 11.5-14.0 N [facility] Platelet count 200 x10E3/uL 150-450 N [facility] MPV 11.2 fl 6.9-9.5 H [facility] Neutrophils 65.9 % 34-64 H [facility] Lymphocytes 19.1 % 25-45 L [facility] Monocytes 11.2 % 1.7-10.6 H [facility] Eosinophils 2.4 % 0.4-7.0 N [facility] Basophils 0.5 % 0.1-2.0 N [facility] Imm. Gran. 0.9 % 0.1-2.0 N [facility] Abs. Neutro. 4.2 x10E3/uL 1.2-7.6 [facility] Abs. Lymph. 1.2 x10E3/uL 1.0-3.5 [facility] Abs. Park. 0.7 x10E3/uL 0.1-1.0 N [facility] Abs. Eosin. 0.2 x10E3/uL 0.1-0.7 [facility] Abs. Baso. 0.0 x10E3/uL 0.0-0.1 N [facility] Abs. Imm. Gran. 0.1 x10E3/uL 0.0-0.1 N [facility] pital ANRBC% 0 % 0 N [facility] ID Date Data Source [id number] 12/25/2019 11:31:00 PM EDT [facility] Physician DocumentationClaxDebora cleaning CenterName: Miguel SeguinAge: 69 yrsSex: MaleDOB: 1950MRN: [id number] Date: 12/25/2019Time: 18:08Account#: [id number] GA: Ashvin Sanchez Physician Marce LambertoDishailee Summary:12/25/19 21:55Hospitalization OrderedHospitalization Status: Observation sc5Jvenckgh: Sandor Gibson ad3Uysifhoo: Tele qi4Fkczluqad: Improved ta5Jclptik: new ts0Gjhnfikk: have improved zg9Fhzl Assignment: qc2Nyywgmkmr- Dyspnea te5Qkxahbbati Information- Admission Type: Observation Status. hd8Flnmovwzs Instructions:- Discharge Summary Sheet jlForms:- Medication Reconciliation th4- SBAR th4- Medication Reconciliation Form - 2nd Copy sk8Vvbpnjasbkc:12/1820:55 Critical Care: not applicable. th4HPI:20:45 This 69 yrs old White Male presents to ER via Private Vehicle with xv2lfzlgmbzdr of Shortness Of Breath.20:45 Patient comes in today complaining of shortness of breath that has ic7azzf progressive over the last week and a half or so. Patient reportssignificant weight gain over this time. Rest makes her symptomsbetter and exertion makes it worse. Denies any chest pain. He isfeeling weak and dizzy at times. No fever or recent illness. Noabdominal pain. He reports some nausea but no vomiting. He didreceive a DuoNeb prior to when I saw him and he thinks this mighthelp a little bit. He denies any other problems or any othercomplaints..Historical:- Allergies: citrus fruit;- Home Meds:1. None- PMHx: cancer;- PSHx: skull surgery;- Immunization history: Flu vaccine is not up to date.- Social history: Smoking status: Patient states former smoker oftobacco. ETOH status Denies use of ETOH.- Advance Directives:: None.ROS:20:46 Constitutional: Negative for chills, fever. Eyes: Negative for acute pe3pxynxbu. ENT: Negative for nasal discharge, rhinorrhea, sinuscongestion. Neck: Negative for acute changes. Cardiovascular:Negative for chest pain. Respiratory: Positive for dyspnea onexertion, shortness of breath. Abdomen/GI: Positive for nausea,Negative for abdominal pain, vomiting, diarrhea. Back: Negative foracute changes. : Negative for urinary symptoms. MS/extremity:Negative for acute changes. Skin: Negative for rash. Neuro: Positivefor dizziness, weakness, Negative for headache.Hematologic/Lymphatic: Negative for abnormal bleeding.Exam:20:46 Constitutional: This is a well developed, well nourished patient who th4is awake, alert, and in no acute distress. Head/Face: Normocephalic,atraumatic.20:46 Neck: External neck: is normal, ROM/movement: is normal, is supple.20:46 Cardiovascular: Rate: tachycardic, Rhythm: regular, Heart sounds:normal, normal S1and S2, no murmur, Edema: 2+ edema to level of leftmidcalf, left ankle, left foot, left toes, right midcalf, rightankle, right foot and right toes.20:46 Respiratory: the patient does not display signs of respiratorydistress, Respirations: normal, Breath sounds: are normal, clearthroughout.20:46 Abdomen/GI: Bowel sounds: normal, Palpation: abdomen is soft andnon-tender, in all quadrants.20:46 Back: pain, is absent, ROM is normal, CVA tenderness, is absent.20:46 Musculoskeletal/extremity: Extremities: no acute changes.20:46 Skin: Appearance: Color: normal in color, Temperature: warm,Moisture: dry.20:46 Neuro: Orientation: is normal, Mentation: is normal.20:46 Psych: Behavior/mood is pleasant, cooperative.Vital Signs:18:17 BP 198 / 122; Pulse 121; Resp 32; Temp 99.9(TE); Pulse Ox 95% on R/A; tlmWeight 97.6 kg (M); Pain 0/10;18:19 BP 198 / 122 (auto/); Pulse 116 MON; jl18:20 Pulse 122 MON; Resp 33; Pulse Ox 96% ; jl18:27 BP 177 / 119 (auto/); Pulse 128 MON; jl18:28 Pulse 120 MON; Resp 22; Pulse Ox 96% ; jl18:31 BP 165 / 106 (auto/); Pulse 119 MON; jl18:32 Pulse 122 MON; Resp 24; Pulse Ox 96% ; jl18:46 BP 163 / 99 (auto/); Pulse 120 MON; jl18:47 Pulse 121 MON; Resp 27; Pulse Ox 98% ; jl19:01 BP 170 / 104 (auto/); Pulse 119 MON; jl19:02 Pulse 115 MON; Resp 25; Pulse Ox 98% ; jl19:15 Pain 0/10; jl19:31 BP 139 / 97 (auto/); Pulse 130 MON; jl19:32 Pulse 132 MON; Resp 25; Pulse Ox 94% ; jl19:46 BP 150 / 90 (auto/); Pulse 118 MON; jl19:46 Pulse 117 MON; Resp 25; Pulse Ox 93% ; jl20:01 BP 149 / 94 (auto/); Pulse 112 MON; jl20:01 Pulse 111 MON; Resp 26; Pulse Ox 96% ; jl20:16 BP 134 / 95 (auto/); Pulse 111 MON; mp320:17 Pulse 113 MON; Resp 24; Pulse Ox 95% ; mp320:52 BP 160 / 101 (auto/); Pulse 104 MON; Resp 28; Pulse Ox 97% ; mp321:01 BP 133 / 93 (auto/); Pulse 104 MON; Resp 23; Pulse Ox 96% ; mp322:31 BP 165 / 102 (auto/); Pulse 95 MON; Pulse Ox 96% ; jl23:28 BP 168 / 105; Pulse 100; Resp 21; Temp 98.1(O); Pulse Ox 97% on R/A; jlPain 0/10;MDM:19:01 Patient medically screened. th420:47 ECG:. th421:56 Antibiotic administration: Not indicated, the patient does not have th4an appreciated infiltrate. Data reviewed: vital signs, nurses notes,lab test result(s), EKG, radiologic studies, CT scan, plain films.Data interpreted: Pulse oximetry: Interpretation: normal. Transitionof care: After a detail discussion of the patient's case, care istransferred to Sandor Gibson MD. ED course: Patient remained stablein the ER. Patient complaining of dyspnea that has been progressiveover the last week and a half or so. On initial evaluation, patientwas markedly hypertensive, tachycardic, and tachypneic. Comprehensivework-up was ordered. I was expecting to find CHF exacerbation orsomething similar. Labs and work-up is not consistent with this. BNPwas negative. Chest x-ray was unremarkable. Patient does have somemild to moderate peripheral edema. Troponin and EKG were alsounremarkable. D-dimer was slightly elevated so a CT chest was orderedto evaluate for PE. This was negative for any pathology. He didreceive some nitroglycerin in the ER to address his hypertension. Hisblood pressure has improved considerably. I am unsure as to what iscausing his dyspnea. No evidence of pneumonia. Pulmonaryhypertension? We will keep him here in the hospital for furtherevaluation and treatment. He is agreeable to this. He is restingcomfortably at this time. He is not any medications currently andprobably needs to be on blood pressure medicine as well..12/1817: Order name: CBC with diff; Complete Time: 19:42 :21 Order name: CKI; Complete Time: :42 : Order name: CMP; Complete Time: :42 :21 Order name: MMB; Complete Time: 19:42 :21 Order name: PT/INR; Complete Time: 19:42 : Order name: PTT; Complete Time: 19:42 :21 Order name: Troponin-I; Complete Time: 19:42 :21 Order name: Chest Single View; Complete Time: 20:07 :10 Order name: D-Dimer; Complete Time: 19:42 :10 Order name: BNP; Complete Time: 19:42 :11 Order name: PE Study; Complete Time: 21:39 :04 Order name: LnvclfkqavAQGL82/1822:04 Order name: PROTEIN/CREATININE URINE YQJVXCVRO70/1822:45 Order name: CT Brain - without IV :21 Order name: EKG in Patient's Room; Complete Time: 18:24 : Order name: Equipment Sterilizer; Complete Time: 18:24 : Order name: EKG.; Complete Time: 18:24 :21 Order name: Oxygen; Complete Time: 18:23 :21 Order name: Pulse Ox Continuous; Complete Time: 18:23 : Order name: Saline Lock; Complete Time: 18:23 :21 Order name: Vital Signs per Triage policy; Complete Time: 18:: Order name: Weigh Patient in Kg; Complete Time: 18:3:15 Order name: 2 Gram SodiumEDMSDispensed Medications:18:39 Drug: Albuterol-Ipratropium 3 ml [ipratropium-albuterol 0.5 mg-3 blkmg(2.5 mg base)/3 mL nebulization soln (3 mL)] Route: Nebulizer;18:59 Follow up: Response: pt states breathing is easier and better blk19:15 Drug: Nitrostat 0.4 mg [Nitrostat 0.4 mg sublingual tablet (1 tabs)] jlRoute: Sublingual;19:15 Follow up: Pain 0/10 Adult; Response: No adverse reaction jl23:10 Drug: Furosemide 20 mg [furosemide 10 mg/mL injection solution (2 jlmL)] Route: IVP; Site: right hand;23:30 Follow up: Urine output 150 ml; Response: No adverse reaction jlEC:47 Rate is 116 beats/min. Rhythm is regular, Sinus tachycardia. Left vv2fmji deviation noted. QRS is negative in lead aVF. MI interval isnormal. QRS interval is normal. QT interval is normal. No Q waves. Twaves are Normal. ST Segment is elevated in leads V1, V2, <1mm.Clinical impression: LVH. Interpreted by me.Signatures:Dispatcher [employer] Alma Cruz RN RN blkMartin, Tisa, RN RN tlmHowland, Todd, MD MD th4LaSiege, Jolene, RN RN jlCorrections: (The following items were deleted from the chart)20:29 18:16 Allergies: seafood; tlm jl Name Value Range Interpretation Code Description Data Antionette rce(s) Supporting Document(s) ID Date Data Source [id number] 12/25/2019 11:31:00 PM EDT [facility] Nurse's NotesClaxNorth [facility] terName: Miguel VickersAge: 69 yrsSex: MaleDOB: 1950MRN: [id number] Date: 12/25/2019Time: 18:08Account#: [id number] MD: Anna SanchezDiagnosis: DyspneaPresentation:12/1817:14 Presenting complaint: Patient states: short of breath 40 lbs weight tlmgain in a week and half. Coronavirus Screening: Patient negative forfever and symptoms of lower respiratory illness (e.g., cough,difficulty breathing). Patient denies exposure to infectious person.Patient denies travel to [place] or affected areas in the 14 daysbefore illness onset. Communicable Disease Screen: Negative forfever>/= 100 degrees Fahrenheit. Communicable disease screen isnegative. (-) rash or unusual skin lesion (-) travel/contact withtraveler (-) respiratory symptoms.18:14 Acuity: Triage 2 tlm18:14 Method Of Arrival: Private Vehicle tlm18:15 Acuity Assignment: Triage 2 tlmTriage Asse ssment:18:15 General: Appears distressed, Behavior is cooperative. Sepsis tlmScreening: (1)Signs/symptoms infection No. Pain: Denies pain. PSS-3Now I'm going to ask you some questions that we ask everyone treatedhere, no matter what problem they are here for. It is part of [facility] policy and it helps us to make sure we are not missinganything important. Over the past 2 weeks, have you felt down,depressed, or hopeless? No. Over the past 2 weeks, have had thoughtsof killing yourself? No. Respiratory: Reports shortness of breath atrest Onset: The symptoms/episode began/occurred gradually, thepatient has moderate shortness of breath.Historical:- Allergies: citrus fruit;- Home Meds:1. None- PMHx: cancer;- PSHx: skull surgery;- Immunization history: Flu vaccine is not up to date.- Social history: Smoking status: Patient states former smoker oftobacco. ETOH status Denies use of ETOH.- Advance Directives:: None.Screenin:31 Abuse screen: Denies threats or abuse. Nutritional screening: No blkdeficits noted. Offer of HIV testing: patient was previously offeredscreening. Fall Risk None identified.Assessment:18:28 General: pt states he has had increasing shortness of breath over blkpast week becoming worse this evening. Neuro: Level of Consciousnessis awake, alert, Oriented to person, place, time, Moves allextremities. Gait is steady, Speech is normal. Cardiovascular: Rhythmis sinus tachycardia. Respiratory: Airway is patent Respiratoryeffort is labored, Respiratory pattern is tachypnea Breath sounds areclear bilaterally. Reports shortness of breath on exertion Onset: Thesymptoms/episode began/occurred gradually, the patient has moderateshortness of breath Denies cough, pain. GI: No deficits noted. : Nodeficits noted.20:01 Reassessment: Patient appears in no apparent distress at this time. jl21:11 Reassessment: patient returned from CT and podiatric technician-notified staff yd1ywie patient appeared to be increasingly SOB while repositioning. VSSupon return to ED. 97 2L NC.22:15 Reassessment: No changes from previously documented assessment. jl22:59 Reassessment: No changes from previously documented assessment. jl23:03 Reassessment: notified hospitalist of BP, verbal order received for jl20mg lasix. .Vital Signs:18:17 BP 198 / 122; Pulse 121; Resp 32; Temp 99.9(TE); Pulse Ox 95% on R/A; tlmWeight 97.6 kg (M); Pain 0/10;18:19 BP 198 / 122 (auto/); Pulse 116 MON; jl18:20 Pulse 122 MON; Resp 33; Pulse Ox 96% ; jl18:27 BP 177 / 119 (auto/); Pulse 128 MON; jl18:28 Pulse 120 MON; Resp 22; Pulse Ox 96% ; jl18:31 BP 165 / 106 (auto/); Pulse 119 MON; jl18:32 Pulse 122 MON; Resp 24; Pulse Ox 96% ; jl18:46 BP 163 / 99 (auto/); Pulse 120 MON; jl18:47 Pulse 121 MON; Resp 27; Pulse Ox 98% ; jl19:01 BP 170 / 104 (auto/); Pulse 119 MON; jl19:02 Pulse 115 MON; Resp 25; Pulse Ox 98% ; jl19:15 Pain 0/10; jl19:31 BP 139 / 97 (auto/); Pulse 130 MON; jl19:32 Pulse 132 MON; Resp 25; Pulse Ox 94% ; jl19:46 BP 150 / 90 (auto/); Pulse 118 MON; jl19:46 Pulse 117 MON; Resp 25; Pulse Ox 93% ; jl20:01 BP 149 / 94 (auto/); Pulse 112 MON; jl 20:01 Pulse 111 MON; Resp 26; Pulse Ox 96% ; jl20:16 BP 134 / 95 (auto/); Pulse 111 MON; mp320:17 Pulse 113 MON; Resp 24; Pulse Ox 95% ; mp320:52 BP 160 / 101 (auto/); Pulse 104 MON; Resp 28; Pulse Ox 97% ; mp321:01 BP 133 / 93 (auto/); Pulse 104 MON; Resp 23; Pulse Ox 96% ; mp322:31 BP 165 / 102 (auto/); Pulse 95 MON; Pulse Ox 96% ; jl23:28 BP 168 / 105; Pulse 100; Resp 21; Temp 98.1(O); Pulse Ox 97% on R/A; jlPain 0/10;ED Course:18:09 Patient arrived in ED. tlm18:10 Anna Sanchez MD is Private Physician. tlm18:15 Triage completed. tlm18:15 Patient placed in exam room on stretcher. tlm18:23 No Physician assisted procedures completed. Inserted saline lock: 20 blkgauge in right hand and blood collected.18:31 Patient has correct armband on for positive identification. Placed in blkgown. Bed in low position. Call light in reach. Side rails up X 1.chief telephone operator on. Pulse ox on. NIBP on.18:31 Oxygen administration via nasal cannula & 2L/min.blk19:01 Lamberto Zheng MD is Attending Physician. th419:03 Ama Najera, MARIBEL is Primary Nurse. jl20:[address] geg21:55 Sandor Gibson MD is Hospitalizing Provider. th422:57 Assisted to bathroom. jlAdministered Medications:18:39 Drug: Albuterol-Ipratropium 3 ml [ipratropium-albuterol 0.5 mg-3 blkmg(2.5 mg base)/3 mL nebulization soln (3 mL)] Route: Nebulizer;18:59 Follow up: Response: pt states breathing is easier and better blk19:15 Drug: Nitrostat 0.4 mg [Nitrostat 0.4 mg sublingual tablet (1 tabs)] jlRoute: Sublingual;19:15 Follow up: Pain 0/10 Adult; Response: No adverse reaction jl23:10 Drug: Furosemide 20 mg [furosemide 10 mg/mL injection solution (2 jlmL)] Route: IVP; Site: right hand;23:30 Follow up: Urine output 150 ml; Response: No adverse reaction jlOutput:23:30 Urine: 150ml; Total: 150ml. jlOutcome:21:55 Decision to Hospitalize by Provider. th423:13 Disposition: Report called to MARIEBL Martínez jl23:28 Condition: stable. jl23:28 Discharge instructions given to patient, Instructed on need foradmit, Demonstrated understanding of instructions.23:28 Discharge Assessment: Patient verbalized understanding of dispositioninstructions. Patient has no functional deficits.23:31 Patient left the ED. jlSignatures:Alma De Anda, RN RN Ruthy Richard ESA ESA gegMaLinda lópez, RN RN Lamberto Gu MD MD au9IumeqlgnyFany marshall RN RN mp3Ama Najera RN RN jlCorrections: (The following items were deleted from the chart)18:21 18:17 BP 198 / 122; Pulse 121bpm; Resp 32bpm; Pulse Ox 95% RA; Temp foe569.3F; 97.6 kg Measured; Pain 0/10; tlm20:29 18:16 Allergies: seafood; tlm jl Name Value Range Interpretation Code Description Data Antionette [facility](s) Supporting Document(s) ID Date Data Source [id number] 10/14/2019 01:49:00 [facility] Name Value Range Interpretation Code Description Data [facility](s) Supporting Document(s) GLU 112 mg/dL 70-110 [facility] Patients taking Sulfasalazine may have f alsely depressedGlucose levels. Patients taking Sulfapyridine may havefalsely elevated Glucose levels. Patients should be drawnfor Glucose before the initial administration of eitherdrug. BUN 16 mg/dL 7-23 [facility] [facility] CRE 0.691 mg/dL 0.500-1.300 [facility] GFR > 60 mL/min [facility] CHLORIDE 108 mmol/L 99-110 [facility] NA 143 mmol/L 136-147 [facility] POTASSIUM 4.2 mmol/L 3.5-5.1 [facility] TCO2 28 mmol/L 20-33 [facility] ANION GAP 11.2 10.0-20.0 [facility] CA 9.0 mg/dL 8.3-10.7 [facility] ALKALINE PHOS 39 U/L 45-117 L [facility] TP 6.6 g/dL 6.0-7.8 [facility] ALB 4.1 g/dL 3.5-5.0 [facility] ESRD Dialysis patient Albumin reference range: 2.9-4.4 g/dL GL 2.5 g/dL 2.3-3.5 [facility] A/G 1.6 1.0-2.5 [facility] T. BILIRUBIN 0.2 mg/dL 0.1-1.1 [facility] [employer] Total Bilirubin is n ot recommended forpatients undergoing treatment with eltrombopag (Promacta)due to the potential for falsely elevated results. ALTI 33 U/L 6-54 [facility] Patients taking Sulfasalazine and/or Sul fapyridine may havefalsely depressed ALT levels. Patients should be drawn forALT before the initial administration of either drug. AST 24 U/L 8-40 [facility] Patients taking Sulfasalazine and/or Sul fapyridine may havefalsely depressed AST levels. Patients should be drawn forAST before the initial administration of either drug. ID Date Data Source [id number] 10/14/2019 01:42:00 PM EDT [facility] Is this an ANNUAL SCREENING TEST? Y Name Value Range Interpretation Code Description Data Antionette rce(s) Supporting Document(s) PSA SCREEN 18.500 ng/mL 0.000-4.000 H [facility] al PSA ASSAY SHOULD NOT BE USED A CANCER SCREENING TEST CRIMINAL [employer] LAW[employer]ER: [employer] 500TEST METHODOLOGY: CHEMILUMINESCENT LOCI METHOD VALUES OBTAINED FROM DIFFERENT ASSAY METHODS OR KITS CANNOTBE USED INTERCHANGEABLY ID Date Data Source [id number] 10/14/2019 01:20:00 PM EDT [facility] Name Value Range Interpretation Code Description Data Antionette rce(s) Supporting Document(s) WBC 7.16 x10E3/uL 4.0-10.5 [facility] RBC 4.72 x10E6/uL 4.70-6.00 [facility] Hemoglobin 14.2 g/dL 14.0-18.0 [facility] Hematocrit 41.2 % 42.0-52.0 L [facility] MCV 87.3 fL 81.0-99.0 [facility] MCH 30.1 pg 27.0-31.0 [facility] MCHC 34.5 g/dL 32.7-35.6 [facility] RDW 12.9 % 11.5-14.0 [facility] Platelet count 191 x10E3/uL 150-450 [facility] ital MPV 11.5 fl 6.9-9.5 H [facility] Neutrophils 55.2 % 34-64 [facility] Lymphocytes 27.7 % 25-45 [facility] Monocytes 10.5 % 1.7-10.6 [facility] Eosinophils 5.2 % 0.4-7.0 [facility] Basophils 0.6 % 0.1-2.0 [facility] Imm. Gran. 0.8 % 0.1-2.0 [facility] Abs. Neutro. 4.0 x10E3/uL 1.2-7.6 N [facility] Abs. Lymph. 2.0 x10E3/uL 1.0-3.5 N [facility] Abs. Park. 0.8 x10E3/uL 0.1-1.0 N [facility] Abs. Eosin. 0.4 x10E3/uL 0.1-0.7 [facility] Abs. Baso. 0.0 x10E3/uL 0.0-0.1 N [facility] Abs. Imm. Gran. 0.1 x10E3/uL 0.0-0.1 N [facility] ANRBC% 0 % 0 N [facility] ID Date Data Source CMP COMPREHENSIVE METABOLIC PROFILE 10/14/2019 02:58:01 AM E DT eCW1 ([facility]) Name Value Range Interpretation Code Description Data Antionette rce(s) Supporting Document(s) 112 GLU eCW1 ([facility]) 16 BUN eCW1 ([facility]) 0.691 CRE eCW1 ([facility]) 143 NA eCW1 ([facility]) > 60 GFR eCW1 ([facility]) 108 CHLORIDE eCW1 ([facility]) 4.2 POTASSIUM eCW1 ([facility]) 28 TCO2 eCW1 ([facility]) 11.2 ANION GAP eCW1 ([facility]) 9.0 CA eCW1 ([facility]) 4.1 ALB eCW1 ([facility]) 39 ALKALINE PHOS eCW1 ([facility]) 6.6 TP eCW1 ([facility]) 2.5 GL eCW1 ([facility]) 1.6 A/G eCW1 ([facility]) 0.2 T. BILIRUBIN eCW1 ([facility]) 33 ALTI eCW1 ([facility]) 24 AST eCW1 ([facility]) ID Date Data Source PSA PROSTATIC SPECIFIC ANTIGEN SCREENING 10/14/2019 02:48:09 AM EDT eCW1 ([facility]) Name Value Range Interpretation Code Description Data Antionette rce(s) Supporting Document(s) 18.500 PSA SCREEN eCW1 ([facility]) ID Date Data Source CBC 10/14/2019 02:24:28 AM EDT eCW1 ([facility]) Name Value Range Interpretation Code Description Data Antionette rce(s) Supporting Document(s) 4.72 RBC eCW1 ([facility]) 14.2 Hemoglobin eCW1 ([facility]) 7.16 WBC eCW1 ([facility]) 30.1 MCH eCW1 ([facility]) 87.3 MCV eCW1 ([facility]) 41.2 Hematocrit eCW1 ([facility]) 191 Platelet count eCW1 ([facility]) 12.9 RDW eCW1 ([facility]) 34.5 MCHC eCW1 ([facility]) 55.2 Neutrophils eCW1 ([facility]) 11.5 MPV eCW1 ([facility]) 10.5 Monocytes eCW1 ([facility]) 27.7 Lymphocytes eCW1 ([facility]) 5.2 Eosinophils eCW1 ([facility]) 0.8 Imm. Gran. eCW1 ([facility]) 0.6 Basophils eCW1 ([facility]) 4.0 Abs. Neutro. eCW1 ([facility]) 2.0 Abs. Lymph. eCW1 ([facility]) 0.8 [address]. Park. eCW1 ([facility]) 0.4 Abs. Eosin. eCW1 ([facility]) 0.0 Abs. Baso. eCW1 ([facility]) 0.1 Abs. Imm. Gran. eCW1 ([facility]) 0 ANRBC% eCW1 ([facility]) ID Date Data Source [id number] 09/16/2019 05:39:00 PM EDT [facility] Name Value Range Interpretation Code Description Data Antionette rce(s) Supporting Document(s) ALBUMIN,URINE 11.3 mg/L 5-17 N [facility] MICROALB/CREAT 6.6 mg/g CR 0-30 N [facility] CREAT. URINE [facility].0 [facility]dL [facility] ID Date Data Source [id number] 08/20/2019 12:38:00 PM EST [facility] [place], [place] [address]LMBHTEFMR SUMMARYPATIENT NAME: MIGUEL VICKERS MR#: [id number] PHYSICIAN: TIFFANY VAUGHN MDAUTHOR: Tiffany Vaughn MD DATE: 08/18/19 #: 2WESTDISCHARGE DATE: : 52Summary of HospitalizationReason for AdmissionAbdominal pain, nauseaHospital [id number] male patient no underlying medical problem presented withcomplaints of left lower quadrant abdominal pain radiating to right lowerquadrant, nausea for 2 days. Denies vomiting. Reported loose bowel movement.Denies chest pain pressure discomfort. CT scan abdomen pelvis appreciated.Patient diagnosed with partial small bowel obstruction secondary togastroenteritis. Surgery consulted.Patient initially placed on clear liquid diet, IV fluids, antiemetics. GIpanel negative. Patient's diet was advanced. Patient tolerating oral. Off IVfluids. Comfortable. No further abdominal pain. Ready for discharge forfurther care as outpatient.Diagnoses (Current Visit)Problem List1. Partial small bowel obstruction2. Gastroenteritis3. DehydrationDiagnoses (Other)Past Pertinent History1. Partial small bowel obstruction2. GastroenteritisPatient's Discharge ConditionVital SignsVital Signs-LastResult Date TimePulse Ox 98 08/20 1044B/P 167/96 08/20 1044Temp 98.0 08/20 1044Pulse 101 08/20 1044Resp 18 08/20 1044Patient's Discharge ConditionDischarge Date 08/20/19Discharge Conditon stableDischarge DispositionhomePhysical ExaminationGeneral Appearance no acute distress, afebrile, alert, awake, conversantHead atraumatic, normocephalicENT moist mucosal membranesNeck no lymphadenopathy, suppleCardiovascular regular rate, no murmur, normal heart soundsRespiratory clear to auscultation, no distress, aerating well, symmetricexpansionAbdomen soft, non-tender, no distention, normal bowel sounds, no guarding,hernia (umbilocal reducible)Urinary no flank painExtremities no clubbing, no cyanosisMuscoskeletal normal inspectionNeurological alert, oriented x 3Psych/Mental Status normal affect, normal moodPatient/Family InstructionsDischarge Activity: Resume normal activityDischarge diet: RegularFollow-upFollow up with your Primary care physician in 7 days. Oral hydrationencouraged. Return to the hospital symptoms worsen.Time spent by provider to complete discharge < 30 minutesCopies ToCopies to Family Provider:DATE SIGNED: 08/20/19 Electronically SignedTIME SIGNED: 1243 TIFFANY VAUGHN MD Name Value Range Interpretation Code Description Data Antionette rce(s) Supporting Document(s) ID Date Data Source [id number] 08/20/2019 11:06:[address] [id number] NAME: MIGUEL VICKERS#: [id number] PHYSICIAN: TIFFANY VAUGHN MDASA[facility] #: [id number] ADM. DATE: 08/18/19PATIENT : 54 DISCH. DATE: [50}DISCHARGE SUMMARYMedical Discharge PlanNicotine Replacement TherapyPrescribed at discharge Rx not offered at [facility] (quit smoking)Personal Care InstructionsDischarge Activity: Resume normal activityDischarge diet: RegularProblem ListMedical ProblemsGastroenteritis (Acute)Partial small bowel obstruction (Acute)Follow Up CareFollow Up:Follow up with your Primary care physician in 7 days. Oral hydrationencouraged. Return to the hospital symptoms worsen.Priority ItemsUrgent/Important items that need to be addressed at primary care follow- upappointmentPlease follow-up with primary care provider in 7 days, follow-up BMP and CBCwith primary care provider.Discharge InformationDISCHARGE INFORMATION* Thank you for choosing [facility] and allowing us toserve you* Our Goal is to provide the highest quality of care.* This discharge information is to help you better understand your diagnosisand medication* Avoid taking ntth-nxq-hjnzttz medicines unless approved by your physician.* Take your medications as prescribed. DO NOT stop any medications unlessapproved first* Weigh yourself daily. Report any gain of 5 lbs in a week* 24 Hour Crisis HOTLINE available: Call Re[employer] at [phone] SMOKING CESSATION* Smoking is dangerous to your health. It delays the healing process, andworks against your medications. Not smoking will improve your health* Our hospital participates with the Opt-to-Quit program. You will be contactedafter discharge by the [facility] Smoker's Quitline for support with tobaccocessation. You have the option once contacted to refuse this service.* You can also go online to www.Sape.Splother. Free nicotine replacementsare available ___Attention* You should contact your follow up Physician as it is important that you lethim or her check you and report any new or remaining problems. If yourcondition worsens, follow up with your provider or visit our EmergencyDepartment. If you received pain medication, anxiety medications, musclerelaxants, or any medication that causes drowsiness, you cannot operatemachinery, power tools, or drive.END ENDDICT: 08/20/19 110 Electronically SignedTRANS:08/20/191105 TIFFANY VAUGHN MDTRANS BY:[id number] SIGNED:08/20/19TIME SIGNED: 1118REPORT COPY TO: Name Value Range Interpretation Code Description Data Antionette rce(s) Supporting Document(s) ID Date Data Source [id number] 08/20/2019 05:39:00 AM EST [facility] Name Value Range Interpretation Code Description Data Antionette rce(s) Supporting Document(s) MAGNESIUM 2.0 mg/dL 1.6-2.6 [facility] ID Date Data Source [id number] 08/20/2019 05:39:00 AM EST [facility] Name Value Range Interpretation Code Description Data Antionette rce(s) Supporting Document(s) GLU 125 mg/dL 70-110 H [facility] Patients taking Sulfasalazine may have f alsely depressedGlucose levels. Patients taking Sulfapyridine may havefalsely elevated Glucose levels. Patients should be drawnfor Glucose before the initial administration of eitherdrug. BUN 10 mg/dL 7-23 [facility] CRE 0.757 mg/dL 0.500-1.300 [facility] GFR > 60 mL/min [facility] CHLORIDE 109 mmol/L 99-110 [facility] NA 145 mmol/L 136-147 [facility] POTASSIUM 4.1 mmol/L 3.5-5.1 [facility] TCO2 26 mmol/L 20-33 [facility] ANION GAP 14.1 10.0-20.0 [facility] CA 7.8 mg/dL 8.3-10.7 L [facility] ALKALINE PHOS 35 U/L 45-117 L [facility] TP 6.0 g/dL 6.0-7.8 [facility] ALB 3.5 g/dL 3.5-5.0 [facility] ESRD Dialysis patient Albumin reference range: 2.9-4.4 g/dL GL 2.5 g/dL 2.3-3.5 [facility] A/G 1.4 1.0-2.5 [facility] TOTAL BILIRUBIN 0.5 mg[facility]dL [facility]1.1 [facility] U/L 6-54 [facility] Patients taking Sulfasalazine and/or Sul fapyridine may havefalsely depressed ALT levels. Patients should be drawn forALT before the initial administration of either drug. AST 16 U/L 8-40 [facility] Patients taking Sulfasalazine and/or Sul fapyridine may havefalsely depressed AST levels. Patients should be drawn forAST before the initial administration of either drug. ID Date Data Source [id number] 08/20/2019 05:17:00 AM EST [facility] Name Value Range Interpretation Code Description Data Antionette rce(s) Supporting Document(s) WBC 5.03 x10E3/uL 4.0-10.5 [facility] RBC 4.45 x10E6/uL 4.70-6.00 [facility] Hemoglobin 13.2 g/dL 14.0-18.0 [facility] Hematocrit 40.6 % 42.0-52.0 [facility] MCV 91.2 fL 81.0-99.0 [facility] MCH 29.7 pg 27.0-31.0 [facility] MCHC 32.5 g/dL 32.7-35.6 [facility] RDW 13.3 % 11.5-14.0 [facility] Platelet count 158 x10E3/uL 150-450 [facility] ital MPV 11.7 fl 6.9-9.5 H [facility] Neutrophils 50.3 % 34-64 [facility] Lymphocytes 31.0 % 25-45 [facility] Monocytes 9.7 % 1.7-10.6 [facility] Eosinophils 8.0 % 0.4-7.0 H [facility] Basophils 0.4 % 0.1-2.0 [facility] Imm. Gran. 0.6 % 0.1-2.0 [facility] Abs. Neutro. 2.5 x10E3/uL 1.2-7.6 [facility] Abs. Lymph. 1.6 x10E3/uL 1.0-3.5 [facility] Abs. Park. 0.5 x10E3/uL 0.1-1.0 [facility] Abs. Eosin. 0.4 x10E3/uL 0.1-0.7 [facility] Abs. Baso. 0.0 x10E3/uL 0.0-0.1 [facility] Abs. Imm. Gran. 0.0 x10E3/uL 0.0-0.1 N [facility] pital ID Date Data Source [id number] 08/19/2019 09:25:00 PM EST [facility] unformed stools in 24 hours? YLaxatives not received within 48hrs? Y Name Value Range Interpretation Code Description Data Antionette rce(s) Supporting Document(s) Campylobacter Not Detected Detected Not [facility] C diff tox AB Not Detected Detected Not [facility] Due to the high asymptomatic carriage ra dave,especially in young children,the clinical relevance of the detectionof toxigenic C. difficile from stool should be consideredin the context of other clinical findings,patient age,and risk factors including hospitalization and antibioticexposure. Plesiom shigell Not Detected Detected Not [facility] Salmonella Not Detected Detected Not [facility] Vibrio sp. Not Detected Detected Not [facility] Vibrio cholerae Not Detected Detected Not [facility] Yersinia entero Not Detected Detected Not [facility] Enteroag E coli Not Detected Detected Not [facility] Enterop E. coli Not Detected Detected Not [facility] Enterot E. coli Not Detected Detected Not [facility] Shiglik E. coli Not Detected Detected Not [facility] Shig/Ent E coli Not Detected Detected Not [facility] Cryptosporidium Not Detected Detected Not [facility] Cyclo cayetanes Not Detected Detected Not [facility] Entamoeba histo Not Detected Detected Not [facility] Giardia lamblia Not Detected Detected Not [facility] Adenov F 40/41 Not Detected Detected Not [facility] Astrovirus Not Detected Detected Not [facility] Norovir GI/GII Not Detected Detected Not [facility] Rotavirus A Not Detected Detected Not [facility] Sapovirus Not Detected Detected Not [facility] The above results have been determined by using the [employer] FilmArray system.FilmArray is an automated in vitro diagnostic system thatutilizes nested multiplex Polymerase Chain Reaction (PCR)and high-resolution melting analysis to detect and identifymultiple nucleic acid targets from clinical specimens. ID Date Data Source [id number] 08/19/2019 03:09:00 PM [facility] [place] [id number] NOTEPATIENT NAME: MIGUEL VICKERS PHYSICIAN: TIFFANY VAUGHN, MDAUTHOR: Zayra GA, Francesca. DATE: 08/18/19 MR#: [id number] NOTE DATE: 08/19/19 RM#: [id number] TIME: 1513 : 52SubjectiveCC/Hx Present IllnessAbdominal pain, nauseaEvents Since Last EntryPatient reported abdominal pain has resolved. Nausea has resolved. Havingdiarrhea 2 episodes watery overnight. Denies chest pain pressure ordiscomfort. Denies fevers or chills. Wanting to have solid food. Toleratingliquid.ObjectiveVital SignsVital Signs-24 HRS08/18 08/19 02/837880 3675 1400Temp 97.4 97.5 97.7Pulse 89 83 78Resp 20 18 18B/P 130/84 160/103 144/88B/P MeanPulse Ox 96 96 97O2 DeliveryO2 Flow [id number]/OutputIntake/Output Summary 24 hours02 1900 08/19 0700Intake Total 1400Output TotalBalance 1400Intake, Oral 1400Number 2UnmeasuredVoidsPatient 89.54 kgWeightCurrent MedicationsHeparin Sodium (Porcine) (Heparin Sodium) 5,000 UNIT TID SUBCUTDextrose/Sodium Chloride/Electrolyt (D5% NSS 0.45% 20KCL 1000ML) 1,000 ML.Q8H IVSodium Chloride (Saline Flush Syr(5ML)) 5 ML Q12H IVMorphine Sulfate (Morphine Sulfate) 4 MG Q4HPRN PRN IVOndansetron HCl (Zofran) 4 MG Q6HPRN PRN IVSodium Chloride (Saline Flush Syr(5ML)) 5 ML QIDPRN PRN IVExamGeneral Appearance no acute distress, afebrile, alert, awake, conversantHead atraumatic, normocephalicENT moist mucosal membranesNeck no lymphadenopathy, suppleCardiovascular regular rate, no murmur, normal heart soundsRespiratory no distress, aerating well, symmetric expansionAbdomen soft, non-tender, no distention, normal bowel sounds, no guarding,hernia (umbilocal reducible)Urinary no flank painExtremities no clubbing, no cyanosisMuscoskeletal normal inspectionNeurological alert, oriented x 3Psych/Mental Status normal affect, normal moodResultsLaboratory DataRecent Labs-24 hours08/[id number] 9228 0414ChemistrySodium (136 - 147 mmol/L) 141 143Potassium (3.5 - 5.1 mmol/L) 4.1 4.2Chloride (99 - 110 mmol/L) 106 108Serum Bicarbonate (20 - 33 mmol/L) 28 29Anion Gap (10.0 - 20.0) 11.1 10.2BUN (7 - 23 mg/dL) 14 12Creatinine (0.500 - 1.300 mg/dL) 0.820 0.746Estimated GFR/1.73 m2 (mL/min) > 60 > 60Glucose (70 - 110 mg/dL) 110 117 HCalcium (8.3 - 10.7 mg/dL) 8.8 8.0 LTotal Bilirubin (0.1 - 1.1 mg/dL) 0.4AST (8 - 40 U/L) 23ALT (6 - 54 U/L) 33Alkaline Phosphatase (45 - 117 U/L) 43 LTotal Protein (6.0 - 7.8 g/dL) 7.5Albumin (3.5 - 5.0 g/dL) 4.3Globulin (2.3 - 3.5 g/dL) 3.2Albumin/Globulin Ratio (1.0 - 2.5) 1.3Lipase (73 - 393 U/L) 153.0HematologyWBC (4.0 - 10.5 x10E3/uL) 11.05 H 8.08RBC (4.70 - 6.00 x10E6/uL) 4.99 4.64 LHgb (14.0 - 18.0 g/dL) 15.0 13.9 LHct (42.0 - 52.0 %) 43.8 41.4 LMCV (81.0 - 99.0 fL) 87.8 89.2MCH (27.0 - 31.0 pg) 30.1 30.0MCHC (32.7 - 35.6 g/dL) 34.2 33.6RDW (11.5 - 14.0 %) 13.3 13.3Plt Count (150 - 450 x10E3/uL) 207 191MPV (6.9 - 9.5 fl) 11.1 H 11.3 HImmature Gran % (Auto) (0.1 - 2.0 %) 0.4 0.2Neut % (Auto) (34 - 64 %) 74.4 H 73.4 HLymph % (Auto) (25 - 45 %) 14.2 L 14.4 LMono % (Auto) (1.7 - 10.6 %) 8.6 7.8Eos % (Auto) (0.4 - 7.0 %) 2.2 4.0Baso % (Auto) (0.1 - 2.0 %) 0.2 0.2Abs Immat Gran (auto) (0.0 - 0.1 x10E3/uL) 0.0 0.0Absolute Neuts (auto) (1.2 - 7.6 x10E3/uL) 8.2 H 5.9Absolute Lymphs (auto) (1.0 - 3.5 x10E3/uL) 1.6 1.2Absolute Monos (auto) (0.1 - 1.0 x10E3/uL) 1.0 0.6Absolute Eos (auto) (0.1 - 0.7 x10E3/uL) 0.2 0.3Absolute Basos (auto) (0.0 - 0.1 x10E3/uL) 0.0 0.0UrinesUrine Color YellowUrine Appearance ClearUrine pH (5.0 - 8.0) 5.5Ur Specific [place] (1.010 - 1.025) 1.020Urine Protein (Negative) NegativeUrine Ketones (NEGATIVE) NegativeUrine Blood (NEGATIVE) NegativeUrine Nitrite (Negative) NegativeUr Bilirubin Confirm (NEGATIVE) NegativeUrine Urobilinogen (0.2 - 1.0 mg/dL) 0.2Urine WBC (Negative) NegativeUrine Glucose (NEGATIVE) NegativeResults Reviewed labs reviewedAssessment/PlanProblem List1. Partial small bowel obstructionStatus AcuteA&PResolving, surgery consult appreciated. Likely secondary to gastroenteritis.IV fluids. Antiemetics. No vomiting. Making bowel movement.2. GastroenteritisStatus AcuteA&PCT scan appreciated. If diarrhea persists GI panel ordered. Advance diet. IVfluids given.Additional [id number]-twhz-nfb male patient no significant past medical history presented withleft lower quadrant abdominal pain. Diagnosed with partial small bowelobstruction, gastroenteritisDVT prophylaxis Heparin subcuDisposition pending clinical improvement, advance diet, likely discharge in 24hours.Resuscitation status Full codePlan discussed with patientCase discussed with adult protective caseworker, nursing staffDATE SIGNED: 08/19/19 Electronically SignedTIME SIGNED: 1073 TIFFANY AVUGHN MD Name Value Range Interpretation Code Description Data Antionette rce(s) Supporting Document(s) ID Date Data Source [id number] 08/19/2019 12:35:[address] [id number] CONSULT REPORTPATIENT NAME: MIGUEL VICKESR MR#: [id number] PHYSICIAN: TIFFANY VAUGHN MDCONSULTING PHYSICIAN: Traci GA,Edgar DATE: 08/18/19 RM#: [id number] DATE: 08/19/19 PATIENT : 54EVALUATION TIME: 1240HistoryReason for consultpartial SBORequested byemergency departmentChief Complaint/Admit ReasonLLQ pain severe radiated across abdomen, no vomitting decreased BM's and somenausea. no sick contacts no recent travelHistory of Presenting Illnesssee CC. no previous abdominal surgery. had scope [facility] was told itwas ok but "they tore him" and were rude to him so he never went back. He didnot need any type of intervention. doesnt go to Additional Notesscope [facility] years agoPast Medical/Surgical HistoryPast Medical/Surgical HistoryMedical ProblemsPartial small bowel obstructionAllergiesCoded Allergies:No Known Drug Allergies (08/19/19)Social History lives aloneHealth maintenance colonoscopyReview of SystemsRespiratoryDenies: hemoptysis, non-productive cough, pleuritic pain, productive cough.CardiovascularDenies: chest pain, palpitations.GastrointestinalReports: nausea, abdominal pain. Denies: vomiting, diarrhea, constipation,melena, hematochezia.GenitorurinaryDenies: dysuria, fl ank pain, hematuria.PsychDenies: change in mental status, confusion.ExamVital SignsVital Signs-24 HRS02/10 [id number] 0543Temp 97.4 97.5Pulse 89 83Resp 20 18B/P 130/84 160/103B/P MeanPulse Ox 96 96O2 DeliveryO2 Flow [id number] ExaminationGeneral Appearance no acute distress, afebrile, alert, awake, conversantHead atraumatic, normocephalicCardiovascular regular rate, no murmur, normal heart soundsRespiratory no distress, aerating well, symmetric expansionAbdomen soft, non-tender, no distention, no guarding, hernia (umbilocalreducible)Assessment/PlanDiagnosis/Problem1. Partial small bowel obstructionAdditional Notesseems like gastroenteritis he is now having liquid BMs and pain has resolved.he is on clears, would advnace diet with discharge planningResuscitation status Full codePlan discussed with patientCopies ToCopies to Family Provider:DATE SIGNED: 08/19/19 Electronically SignedTIME SIGNED: [id number] EDGAR FIELD MD Name Value Range Interpretation Code Description Data Antionette rce(s) Supporting Document(s) ID Date Data Source [id number] 08/19/2019 05:21:00 AM EST [facility] Name Value Range Interpretation Code Description Data Antionette rce(s) Supporting Document(s) GLU 117 mg/dL 70-110 [facility] Patients taking Sulfasalazine may have f alsely depressedGlucose levels. Patients taking Sulfapyridine may havefalsely elevated Glucose levels. Patients should be drawnfor Glucose before the initial administration of eitherdrug. BUN 12 mg/dL 7-23 [facility] CRE 0.746 mg/dL 0.500-1.300 [facility] GFR > 60 mL/min [facility] CHLORIDE 108 mmol/L 99-110 [facility] NA 143 mmol/L 136-147 [facility] POTASSIUM 4.2 mmol/L 3.5-5.1 [facility] TCO2 29 mmol/L 20-33 [facility] ANION GAP 10.2 10.0-20.0 [facility] CA 8.0 mg/dL 8.3-10.7 [facility] ID Date Data Source [id number] 08/19/2019 05:06:00 AM EST [facility] Name Value Range Interpretation Code Description Data Antionette rce(s) Supporting Document(s) WBC 8.08 x10E3/uL 4.0-10.5 [facility] RBC 4.64 x10E6/uL 4.70-6.00 [facility] Hemoglobin 13.9 g/dL 14.0-18.0 [facility] Hematocrit 41.4 % 42.0-52.0 [facility] MCV 89.2 fL 81.0-99.0 [facility] MCH 30.0 pg 27.0-31.0 [facility] MCHC 33.6 g/dL 32.7-35.6 [facility] RDW 13.3 % 11.5-14.0 [facility] Platelet count 191 x10E3/uL 150-450 [facility] ital MPV 11.3 fl 6.9-9.5 [facility] Neutrophils 73.4 % 34-64 [facility] Lymphocytes 14.4 % 25-45 L [facility] Monocytes 7.8 % 1.7-10.6 [facility] Eosinophils 4.0 % 0.4-7.0 [facility] Basophils 0.2 % 0.1-2.0 [facility] Imm. Gran. 0.2 % 0.1-2.0 [facility] Abs. Neutro. 5.9 x10E3/uL 1.2-7.6 [facility] Abs. Lymph. 1.2 x10E3/uL 1.0-3.5 [facility] Abs. Park. 0.6 x10E3/uL 0.1-1.0 N [facility] Abs. Eosin. 0.3 x10E3/uL 0.1-0.7 [facility] Abs. Baso. 0.0 x10E3/uL 0.0-0.1 N [facility] Abs. Imm. Gran. 0.0 x10E3/uL 0.0-0.1 [facility] ID Date Data Source [id number] 08/18/2019 07:53:00 PM EST [facility] [address] [id number] AND PHYSICALPATIENT NAME: MIGUEL VICKERS MR#: [id number] PHYSICIAN: TIFFANY VAUGHN MDAUTHOR: Codey GA,Eduardo DATE: 08/18/19 RM#: [id number] [id number] PHYSICAL DATE: 08/18/19 : 54EVALUATION TIME: 1952HistoryHistory of Presenting Ltymuan18 y.o white male with n significant medical history who presented to the EDwith complaints of dull LLQ abdominal pain with radiation to RLL. Pt reportspain started yesterday has been intrmittent but got worse today while he wasdriving. He reports nausea but no vomiting. He also reports one loose stooltoday. He has been having daily BMs. He had a colonoscopy 4 years ago andreportedly was 'ok'. He denies any chest pain, palpitations, dizziness, chills,and cough. No previous abdominal surgereis. Pt was found to have partial/earlySBO. Dr. Field was consulted by the ED provider and will see patient in themorning.Past Medical/Surgical HistoryPast Medical/Surgical HistoryMedical ProblemsPartial small bowel obstructionReconciled Home Med ListSee Reconciled Home Medication ListAl lergiesCoded Allergies:No Known Allergies (08/18/19)Family history Mother dies in her 90s from old age. Father in his 40s fromalcoholism.Social History no alcohol use, no recreational drug use, quit smoking (3pk/yrsmoking history)Review of SystemsAdditional notes13 point review of systems done and it is all negative except what is noted inthe HPIExamVital SignsVital Signs-24 [id number]/056689Pkqa 97.4Pulse 89Resp 20B/P 130/84B/P MeanPulse Ox 96O2 DeliveryO2 Flow [id number] ExaminationGeneral Appearance no acute distress, afebrile, awake, face symetrical, mentalstatus normal, no respiratory distressHead normocephalic, old scar on left fronatl area from previous skull surgeryENT moist mucosal membranesEye AssessementAssessment: EOMI, normal scleraNeck no lymphadenopathy, suppleCardiovascular regular rate, no murmur, no gallop, no rub, no heave, normalcaillary refill, normal heart soundsAbdomen soft, no distention, normal bowel sounds, no guarding, no rebound, nomass, no pulsatile mass, mildly tender (LLQ)Urinary no flank painExtremities no clubbing, no cyanosisMuscoskeletal normal inspectionNeurological alert, oriented x 3Skin AssessmentSkin dry, warmPsych/Mental Status normal affect, normal moodData ReviewLaboratory DataRecent Labs-48 hours08/[id number] 0414ChemistrySodium (136 - 147 mmol/L) 141 143Potassium (3.5 - 5.1 mmol/L) 4.1 4.2Chloride (99 - 110 mmol/L) 106 108Serum Bicarbonate (20 - 33 mmol/L) 28 29Anion Gap (10.0 - 20.0) 11.1 10.2BUN (7 - 23 mg/dL) 14 12Creatinine (0.500 - 1.300 mg/dL) 0.820 0.746Estimated GFR/1.73 m2 (mL/min) > 60 > 60Glucose (70 - 110 mg/dL) 110 117 HCalcium (8.3 - 10.7 mg/dL) 8.8 8.0 LTotal Bilirubin (0.1 - 1.1 mg/dL) 0.4AST (8 - 40 U/L) 23ALT (6 - 54 U/L) 33Alkaline Phosphatase (45 - 117 U/L) 43 LTotal Protein (6.0 - 7.8 g/dL) 7.5Albumin (3.5 - 5.0 g/dL) 4.3Globulin (2.3 - 3.5 g/dL) 3.2Albumin/Globulin Ratio (1.0 - 2.5) 1.3Lipase (73 - 393 U/L) 153.0HematologyWBC (4.0 - 10.5 x10E3/uL) 11.05 H 8.08RBC (4.70 - 6.00 x10E6/uL) 4.99 4.64 LHgb (14.0 - 18.0 g/dL) 15.0 13.9 LHct (42.0 - 52.0 %) 43.8 41.4 LMCV (81.0 - 99.0 fL) 87.8 89.2MCH (27.0 - 31.0 pg) 30.1 30.0MCHC (32.7 - 35.6 g/dL) 34.2 33.6RDW (11.5 - 14.0 %) 13.3 13.3Plt Count (150 - 450 x10E3/uL) 207 191MPV (6.9 - 9.5 fl) 11.1 H 11.3 HImmature Gran % (Auto) (0.1 - 2.0 %) 0.4 0.2Neut % (Auto) (34 - 64 %) 74.4 H 73.4 HLymph % (Auto) (25 - 45 %) 14.2 L 14.4 LMono % (Auto) (1.7 - 10.6 %) 8.6 7.8Eos % (Auto) (0.4 - 7.0 %) 2.2 4.0Baso % (Auto) (0.1 - 2.0 %) 0.2 0.2Abs Immat Gran (auto) (0.0 - 0.1 x10E3/uL) 0.0 0.0Absolute Neuts (auto) (1.2 - 7.6 x10E3/uL) 8.2 H 5.9Absolute Lymphs (auto) (1.0 - 3.5 x10E3/uL) 1.6 1.2Absolute Monos (auto) (0.1 - 1.0 x10E3/uL) 1.0 0.6Absolute Eos (auto) (0.1 - 0.7 x10E3/uL) 0.2 0.3Absolute Basos (auto) (0.0 - 0.1 x10E3/uL) 0.0 0.0UrinesUrine Color YellowUrine Appearance ClearUrine pH (5.0 - 8.0) 5.5Ur Specific [place]yon (1.010 - 1.025) 1.020Urine Protein (Negative) NegativeUrine Ketones (NEGATIVE) NegativeUrine Blood (NEGATIVE) NegativeUrine Nitrite (Negative) NegativeUr B ilirubin Confirm (NEGATIVE) NegativeUrine Urobilinogen (0.2 - 1.0 mg/dL) 0.2Urine WBC (Negative) NegativeUrine Glucose (NEGATIVE) NegativeImagingDATE OF EXAMINATION: 08/18/2019 18:01 ESTCT ABD&PEL WITH IV CONT ONLYHISTORY: Acute left lower quadrant painTECHNIQUE:This CT exam was performed using the following dose reductiontechniques: automated exposure control, adjustment of mA and/or kVaccording to the patient's size, and use of iterative reconstructiontechnique.Standard contiguous axial spiral imaging was obtained from the dome ofthe diaphragms through the symphysis pubis without oral contrast andwith intravenous contrast administration and with coronalreformatting.FINDINGS:Mildly dilated fluid-filled loops of small bowel in the left mid tolower abdomen are appreciated along with more distal collapsednormal-appearing small bowel and normal. Large bowel suggest thepossibility of early/partial small bowel obstruction. Exact point oftransition is not identified but likely within the left lower abdomen.No free air or free fluid to suggest perforation and no drainablecollection/abscess .Liver, spleen, pancreas, gallbladder, bilateral adrenal glands andright kidney are normal. Left kidney includes 8 mm nonobstructingnephrolith. Further evaluation of the enteric system demonstratesscattered colonic diverticula without acute diverticulitis. Pelvisdemonstrates normal bladder and mildly prominent prostate gland. Noascites. No free air. No significant adenopathy. Abdominal aortawithout aneurysm or dissection. Osseous structures demonstratedegenerative changes. Lung bases are clear.IMPRESSION:1. Findings described above suggest the possibility of early/partialsmall bowel obstruction and correlation is required. No free air orfree fluid to suggest perforation and no drainable collection noted.2. Scattered colonic diverticula without acute diverticulitis.3. 8 mm nonobstructing left renal calculus.4. Prominent prostate gland.Assessment/PlanDiagnosis/Problem1. Partial small bowel obstructionA&PPartial/early small bowel obstruction, Dr. Goss consulted in ED will seepatient in the morning.-Started patient on clears. Patient having bowel movements.-We will continue to monitor.-Continue with antiemetics and IV fluids.Resuscitation status Full codePlan discussed with patientCase discussed with nursing staffCopies ToCopies to Family Provider:CQM VTE HISTORYVTE HISTORYPrior VTE? NoDATE SIGNED: 08/19/19 Electronically SignedTIME SIGNED: 722 SANDOR JIANG MD Name Value Range Interpretation Code Description Data Antionette rce(s) Supporting Document(s) ID Date Data Source [id number] 08/18/2019 06:39:00 PM EST [facility] Exam Number: [id number] OF EXAMINATIO N: 08/18/2019 18:01 ESTCT ABD&PEL WITH IV CONT ONLYHISTORY: Acute left lower quadrant painTECHNIQUE:This CT exam was performed using the following dose reductiontechniques: automated exposure control, adjustment of mA and/or kVaccording to the patient's size, and use of iterative reconstructiontechnique.Standard contiguous axial spiral imaging was obtained from the dome ofthe diaphragms through the symphysis pubis without oral contrast andwith intravenous contrast administration and with coronalreformatting.FINDINGS:Mildly dilated fluid-filled loops of small bowel in the left mid tolower abdomen are appreciated along with more distal collapsednormal-appearing small bowel and normal. Large bowel suggest thepossibility of early/partial small bowel obstruction. Exact point oftransition is not identified but likely within the left lower abdomen.No free air or free fluid to suggest perforation and no drainablecollection/abscess.Liver, spleen, pancreas, gallbladder, bilateral adrenal glands andright kidney are normal. Left kidney includes 8 mm nonobstructingnephrolith. Further evaluation of the enteric system demonstratesscattered colonic diverticula without acute diverticulitis. Pelvisdemonstrates normal bladder and mildly prominent prostate gland. Noascites. No free air. No significant adenopathy. Abdominal aortawithout aneurysm or dissection. Osseous structures demonstratedegenerative changes. Lung bases are clear.IMPRESSION:1. Findings described above suggest the possibility of early/partialsmall bowel obstruction and correlation is required. No free air orfree fluid to suggest perforation and no drainable collection noted.2. Scattered colonic diverticula without acute diverticulitis.3. 8 mm nonobstructing left renal calculus.4. Prominent prostate gland.Electronically signed in PS360 by: Rogerio Casey M.D. 08/18/2019 18:30EST Reported By: - Rogerio Avelar M.D. Signed By: Rogerio Avelar M.D. Name Value Range Interpretation Code Description Data Antionette rce(s) Supporting Document(s) ID Date Data Source [id number] 08/18/2019 05:35:00 PM EST [facility] Name Value Range Interpretation Code Description Data Antionette rce(s) Supporting Document(s) URINE COLOR Yellow [facility] UAPR Clear [facility] UGLU Negative NEGATIVE [facility] URINE BILIRUBIN [facility] Negative NEGATIVE [facility] USG 1.020 1.010-1.025 [facility] UBLO Negative NEGATIVE [facility] UpH 5.5 5.0-8.0 [facility] UPRO Negative Negative [facility] UUB 0.2 mg/dL 0.2-1.0 [facility] UNIT Negative Negative [facility] ULEU Negative Negative [facility] ID Date Data Source [id number] 08/18/2019 05:58:00 PM EST [facility] Name Value Range Interpretation Code Description Data Antionette rce(s) Supporting Document(s) LIP 153.0 U/L 73-393 [facility] ID Date Data Source [id number] 08/18/2019 05:58:00 PM EST [facility] Name Value Range Interpretation Code Description Data Antionette rce(s) Supporting Document(s) GLU 110 mg/dL 70-110 [facility] Patients taking Sulfasalazine may have f alsely depressedGlucose levels. Patients taking Sulfapyridine may havefalsely elevated Glucose levels. Patients should be drawnfor Glucose before the initial administration of eitherdrug. BUN 14 mg/dL 7-23 [facility] CRE 0.820 mg/dL 0.500-1.300 [facility] GFR > 60 mL/min [facility] CHLORIDE 106 mmol/L 99-110 [facility] NA 141 mmol/L 136-147 [facility] POTASSIUM 4.1 mmol/L 3.5-5.1 [facility] TCO2 28 mmol/L 20-33 [facility] ANION GAP 11.1 10.0-20.0 [facility] CA 8.8 mg/dL 8.3-10.7 [facility] ALKALINE PHOS 43 U/L 45-117 [facility] TP 7.5 g/dL 6.0-7.8 [facility] ALB 4.3 g/dL 3.5-5.0 [facility] ESRD Dialysis patient Albumin reference range: 2.9-4.4 g/dL GL 3.2 g/dL 2.3-3.5 [facility] A/G 1.3 1.0-2.5 [facility] TOTAL BILIRUBIN 0.4 mg/dL 0.1-1.1 [facility] ALTI 33 U/L 6-54 [facility] Patients taking Sulfasalazine and/or Sul fapyridine may havefalsely depressed ALT levels. Patients should be drawn forALT before the initial administration of either drug. AST 23 U/L 8-40 [facility] Patients taking Sulfasalazine and/or Sul fapyridine may havefalsely depressed AST levels. Patients should be drawn forAST before the initial administration of either drug. ID Date Data Source [id number] 08/18/2019 05:27:00 PM EST [facility] Name Value Range Interpretation Code Description Data Antionette rce(s) Supporting Document(s) WBC 11.05 x10E3/uL 4.0-10.5 H [facility] RBC 4.99 x10E6/uL 4.70-6.00 [facility] Hemoglobin 15.0 g/dL 14.0-18.0 [facility] Hematocrit 43.8 % 42.0-52.0 [facility] MCV 87.8 fL 81.0-99.0 [facility] MCH 30.1 pg 27.0-31.0 [facility] MCHC 34.2 g/dL 32.7-35.6 [facility] RDW 13.3 % 11.5-14.0 [facility] Platelet count 207 x10E3/uL 150-450 [facility] ital MPV 11.1 fl 6.9-9.5 H [facility] Neutrophils 74.4 % 34-64 H [facility] Lymphocytes 14.2 % 25-45 L [facility] Monocytes 8.6 % 1.7-10.6 N [facility] Eosinophils 2.2 % 0.4-7.0 [facility] Basophils 0.2 % 0.1-2.0 [facility] Imm. Gran. 0.4 % 0.1-2.0 [facility] Abs. Neutro. 8.2 x10E3/uL 1.2-7.6 [facility] Abs. Lymph. 1.6 x10E3/uL 1.0-3.5 N [facility] Abs. Park. 1.0 x10E3/uL 0.1-1.0 [facility] Abs. Eosin. 0.2 x10E3/uL 0.1-0.7 N [facility] Abs. Baso. 0.0 x10E3/uL 0.0-0.1 [facility] Abs. Imm. Gran. 0.0 x10E3/uL 0.0-0.1 [facility] pital ID Date Data Source [id number] 08/18/2019 08:04:00 PM EST [facility] Physician DocumentationClaxDebora cleaning CenterName: Miguel SeguinAge: 69 yrsSex: MaleDOB: 1950MRN: [id number] Date: 08/18/2019Time: 16:34Account#: [id number] MD: NONE, - Per PatientED PhysicianDisposition Summary:08/18/19 19:50Hospitalization OrderedHospitalization Status: Observation mkProvider: Sandor Jiang mkLocation: Med/Surg mkCondition: Stable mkProblem: new mkSymptoms: have improved mkRoom Assignment: mkDiagnosis- Free text - Partial small bowel obstruction mkAdditional Information- Admission Type: Observation Status. mkDischarge Instructions:- Discharge Summary Sheet [id number]:- Medication Reconciliation mk- Medication Reconciliation Form - 2nd Copy mk- SBAR kk2HPI:08/1015:54 This 69 yrs old White Male presents to ER via Private Vehicle with mkcomplaints of Abdominal Pain.16:54 The patient presents with abdominal pain in the left lower quadrant. mkOnset: The symptoms/episode began/occurred today. The symptomsradiate to right lower quadrant. Associated signs and symptoms:Pertinent positives: nausea, Pertinent negatives: anorexia, blood instools, chest pain, constipation, diarrhea, dysuria, fever, headache,hematuria, palpitations, shortness of breath, testicular pain,vomiting, vomiting blood. The symptoms are described as achy, sharp.Modifying factors: The symptoms are alleviated by nothing, thesymptoms are aggravated by movement, pressure. Severity of pain: Atits worst the pain was moderate just prior to arrival. The patienthas not experienced similar symptoms in the past. The patient has notrecently seen a physician.Historical:- Allergies: No known Allergies;- Home Meds:1. None- PMHx: None;- PSHx: skull surgery;- Immunization history: Last tetanus immunization: up to date. Fluvaccine is not up to date.- Family history: Reviewed and not pertinent, No immediate familymembers are acutely ill.- Social history: Smoking status: Patient states was never smoker oftobaAtonarpo. ETOH status Denies use of ETOH.- Advance Directives:: None.- Hospitalizations: : No recent hospitalization is reported.ROS:16:57 Con stitutional: Alert, orientated, conversing appropriately. Eyes: mkNegative for blurriness, tearing, itching, and acute vison loss. ENT:Negatve for injury, pain and discharge Neck: Negative for injury,pain, and swelling, Cardiovascular: Negative for chest pain,palpitations, JVD, edema, murmur Respiratory: Negative for shortnessof breath, cough, sputum, wheezing, pleuritic chest pain, andhemoptysis. Back: Negative for injury and pain, : Negative forinjury, bleeding, discharge, and swelling, MS/Extremity: Negative formuscle atrophy, weakness; joint range of motion, instability,redness, swelling, tenderness; spine deviation; gait. Skin: Negativefor skin, hair, nail changes; itching; rashes; sores; lumps; moles.Neuro: Negative for headache, weakness, numbness, tingling, tremors,and seizure. Abdomen/GI: Positive for abdominal pain, nausea,Negative for vomiting, diarrhea, constipation, abdominal cramps,abdominal distension, anorexia, dysphagia, hematemesis, black/tarrystool, rectal pain, rectal bleeding, bowel incontinence, flatulence.Exam:16:57 Constitutional: This is a well developed, well nourished patient who mkis awake, alert, and in no acute distress. Head/Face: Normocephalic,atraumatic. Eyes: Pupils equal round and reactive to light,extra-ocular motions intact. Lids and lashes normal. Conjunctivaand sclera are non-icteric and not injected. Cornea within normallimits. Periorbital areas with no swelling, redness, or edema. ENT:Nares patent. No nasal discharge, no septal abnormalities noted.Tympanic membranes are normal and external auditory canals are clear.Oropharynx with no redness, swelling, or masses, exudates, orevidence of obstruction, uvula midline. Mucous membranes moist.Neck: Trachea midline, no thyromegaly or masses palpated, and nocervical lymphadenopathy. Supple, full range of motion withoutnuchal rigidity, or vertebral point tenderness. No Meningismus.Chest/axilla: Normal chest wall appearance and motion. Nontenderwith no deformity. No lesions are appreciated. Cardiovascular:Regular rate and rhythm with a normal S1 adn S2. No gallops, murmurs,or rubs. Normal PMI, no JVD. No pulse deficits. Respiratory: Lungshave equal breath sounds bilaterally. No rales, rhonchi or wheezesnoted. No increased work of breathing, no retractions or nasalflaring.16:57 Back: No spinal tenderness. No costovertebral tenderness. Fullrange of motion. Skin: Warm, dry with normal turgor. Normal colorwith no rashes, no lesions, and no evidence of cellulitis. MS/Extremity: Pulses equal, no cyanosis. Neurovascular intact. Full,normal range of motion. Neuro: Awake and alert, GCS 15, oriented toperson, place, time, and situation. Cranial nerves II-XII grosslyintact. Motor strength 5/5 in all extremities. Sensory grosslyintact. Cerebellar exam normal. Normal gait. Psych: Awake, alert,with orientation to person, place and time. Behavior, mood, andaffect are within normal limits.16:57 Abdomen/GI: Inspection: abdomen appears normal, Bowel sounds: normal,in all quadrants, active, all quadrants, Palpation: soft, in allquadrants, moderate abdominal tenderness, in the left lower quadrant,mass, is not appreciated, rebound tenderness, is not appreciated,voluntary guarding, is not appreciated, involuntary guarding, is notappreciated, no appreciated organomegaly.Vital Signs:16:37 BP 160 / 115; Pulse 91; Resp 20; Temp 98.2(T); Pulse Ox 97% on R/A; klpWeight 90.5 kg; Pain 8/10;19:18 BP 138 / 88; Pulse 78; Resp 16; Pulse Ox 96% ; kk219:31 BP 129 / 75 (auto/); Pulse 76 MON; Pulse Ox 95% ; kk220:02 BP 129 / 75; Pulse 81; Resp 16; Temp 97.6(O); Pulse Ox 96% ; Pain kk23/10;MDM:16:44 Patient medically screened. mk18:56 ED course: Assessment and diagnostics discussed with Dr. Kathrin nicole she states she would recommend clear liquid diet and is availableto consult. Patient agrees with admission.19:27 ED course: Assessment and diagnostics discussed with zayra Perkins be down to evaluate and admit patient.19:48 Data reviewed: vital signs, nurses notes, lab test result(s), CBC, mkelectrolytes, urinalysis, radiologic studies, CT scan.08/1015:46 Order name: CBC with diff; Complete Time: 17:31 mk02/1017:32 Interpretation: Normal except: WBC 11.05; MPV 11.1; Neutrophils 74.4; mkLymphocytes 14.2.08/1015:46 Order name: CMP; Complete Time: 18:00 8: Interpretation: Normal except: ALKALINE PHOS 43. mk08/1015:46 Order name: Lipase; Complete Time: 18:00 8: Interpretation: Within normal limits. :46 Order name: UA; Complete Time: 17:47 :47 Interpretation: Within normal limits. 8: Order name: CT Abdomen and Pelvis - with IV; Complete Time: 18:46 8:54 Interpretation: Abnormal. :46 Order name: NPO; Complete Time: 16:52 :46 Order name: Saline Lock; Complete Time: 17:07 :46 Order name: Vital Signs per policy; Complete Time: 16:52 9:52 Order name: Clear SrhhkmIMSL68/1019:53 Order name: Consult PhysicianEDMSDispensed Medications:17:06 Drug: NS 0.9% 1000 ml [sodium chloride 0.9 % intravenous solution] ksgRoute: IV; Rate: bolus; Site: right hand;18:13 Follow up: IV Status: Completed infusion; IV Intake: 1000ml ksg18:08 Drug: Ondansetron 4 mg [ondansetron HCl 2 mg/mL intravenous solution ksg(2 mL)] Route: IVP; Site: right hand;19:06 Follow up: Response: No adverse reaction ksg19:05 Drug: morphine 2 mg [morphine 2 mg/mL injection syringe (1 mL)] ksgRoute: IVP; Site: right hand;Signatures:Dispatcher Juanis Farr RN RN ksgPike, Kathy, RN RN klpKnight, Mary, FNP-C FNP-Anandorrections: (The following items were deleted from the chart)19:25 18:54 Abnormal. mk19:26 18:54 OrderId: [id number] PrecursorText: InterpretationText: [facility] Name Value Range Interpretation Code Description Data Antionette rce(s) Supporting Document(s) ID Date Data Source [id number] 08/18/2019 08:04:00 PM EST [facility] Nurse's NotesClaxacutecare health system-[facility] Satnam terName: Miguel VickersAge: 69 yrsSex: MaleDOB: 1950MRN: [id number] Date: 08/18/2019Time: 16:34Account#: [id number] 6APrivate GA: NONE, - Per PatientDiagnosis: Free text-Partial small bowel obstructionPresentation:08/1015:35 Presenting complaint: Patient states: severe pain low abd since . Communicable Disease Screen: Negative for fever>/= 100degrees Fahrenheit. Communicable disease screen is negative.16:35 Acuity: Triage 3 klp16:35 Method Of Arrival: Private Vehicle klp16:36 Acuity Assignment: Triage 3 klpTriage Assessment:16:37 General: Appears uncomfortable, Behavior is cooperative. Sepsis klpScreening: (1)Signs/symptoms infection Sepsis is not suspected. Pain:Complains of pain in left lower quadrant. PSS-3 Now I'm going to askyou some questions that we ask everyone treated here, no matter wha tproblem they are here for. It is part of the hospital's policy and ithelps us to make sure we are not missing anything important. Over thepast 2 weeks, have you felt down, depressed, or hopeless? No. Overthe past 2 weeks, have had thoughts of killing yourself? No. In yourlifetime, have you ever attempted to kill yourself? No. GI: Reportsnausea.Historical:- Allergies: No known Allergies;- Home Meds:1. None- PMHx: None;- PSHx: skull surgery;- Immunization history: Last tetanus immunization: up to date. Fluvaccine is not up to date.- Family history: Reviewed and not pertinent, No immediate familymembers are acutely ill.- Social history: Smoking status: Patient states was never smoker [facility] [place] ETOH status Denies use of ETOH.- Advance Directives:: None.- Hospitalizations: : No recent hospitalization is reported.Screenin:51 Abuse screen: Denies threats or abuse. Nutritional screening: No ksgdeficits noted. Offer of HIV testing: patient was previously offeredscreening. Fall Risk None identified.Assessment:16:50 Pain: Complains of pain in right lower quadrant and left lower ksgquadrant Pain currently is 7 out of 10 on a pain scale. Respiratory:Respiratory effort is unlabored, Breath sounds are clear bilaterally.GI: Bowel sounds present X 4 quads. Abd is soft X 4 quads Reportsnausea.18:00 Reassessment: No changes from previously documented assessment. ksgVital Signs:16:37 BP 160 / 115; Pulse 91; Resp 20; Temp 98.2(T); Pulse Ox 97% on R/A; klpWeight 90.5 kg; Pain 8/10;19:18 BP 138 / 88; Pulse 78; Resp 16; Pulse Ox 96% ; kk219:31 BP 129 / 75 (auto/); Pulse 76 MON; Pulse Ox 95% ; kk220:02 BP 129 / 75; Pulse 81; Resp 16; Temp 97.6(O); Pulse Ox 96% ; Pain kk23/10;ED Course:16:34 Patient arrived in ED. klp16:35 NONE, - Per Patient is Private Physician. klp16:36 Triage completed. klp16:44 Paola Lopez FNP-C is [facility]. mk16:50 Juanis Bond RN is Primary Nurse. ksg16:52 Patient has correct armband on for positive identification. [facility]. Call light in reach. Side rails up X 1.16:52 No Physician assisted procedures completed. ksg17:07 Labs drawn. (by ED staff). Inserted peripheral IV: 20 gauge in right ksghand and blood collected.18:[address] ksg19:17 Report received from Dunia Jones RN. kk219:33 Primary Nurse role handed off by Juanis Bnod RN geg19:49 Sandor Jiang MD is Hospitalizing Provider. mkAdministered Medications:17:06 Drug: NS 0.9% 1000 ml [sodium chloride 0.9 % intravenous solution] ksgRoute: IV; Rate: bolus; Site: right hand;18:13 Follow up: IV Status: Completed infusion; IV Intake: 1000ml ksg18:08 D rug: Ondansetron 4 mg [ondansetron HCl 2 mg/mL intravenous solution ksg(2 mL)] Route: IVP; Site: right hand;19:06 Follow up: Response: No adverse reaction ksg19:05 Drug: morphine 2 mg [morphine 2 mg/mL injection syringe (1 mL)] ksgRoute: IVP; Site: right hand;Intake:18:13 IV: 1000ml; Total: 1000ml. ksgOutcome:19:50 Decision to Hospitalize by Provider. mk20:02 Disposition: Admitted to Med/surg accompanied by nurse, via [id number], with chart.20:02 Condition: stable.20:02 Instructed on need for admit.20:02 Discharge Assessment: Patient verbalized understanding of dispositioninstructions. Patient has no functional deficits.20:04 Patient left the ED. [id number]:Juanis Bond, RN Delmi Watkins, RN RN Ruthy Dean ESA ESA gegKnight, Mary, [employer] MACH[employer] SUPERVISOR-Derek MENDIOLA-Carmen Interiano, RN RN kk2 Name Value Range Interpretation Code Description Data Antionette rce(s) Supporting Document(s) Procedure Social History Code Duration Value Status Description Data Source(s ) Smoking 02/05/2020 12:00:00 AM EDT Former Smoker completed Former Smoker eCW1 ([facility]) Smoking 02/05/2020 12:00:00 AM EDT Former Smoker completed Former Smoker eCW1 ([facility]) Smoking 01/22/2020 12:00:00 AM EDT Former Smoker completed Former Smoker eCW1 ([facility]) Smoking 01/22/2020 12:00:00 AM EDT Former Smoker completed Former Smoker eCW1 ([facility]) Smoking 01/22/2020 12:00:00 AM EDT Former Smoker completed Former Smoker eCW1 ([facility]) Smoking 01/08/2020 12:00:00 AM EDT Never Smoker completed Never S moker eCW1 ([facility]) Smoking 12/26/2019 12:00:00 AM EDT Never Smoker completed Never S moker eCW1 ([facility]) Vital Signs ID Date Data Source UNK Name Value Range Interpretation Code Description Data Source(s) Diastolic blood pressure 78 mm[Hg] 78 mm[Hg] eCW1 ([facility]) Systolic blood pressure 170 mm[Hg] 170 mm[Hg] e CW1 ([facility]) Oxygen saturation in Arterial blood by Pulse oximetry 99 % 99 % eCW1 ([facility]) Respiratory rate 18 /min 18 /min eCW1 ([facility]) Heart rate 94 /min 94 /min W1 ([facility]) Body temperature 98.5 [degF] 98.5 [degF] W1 ( [facility]) Body mass index (BMI) [Ratio] 32.19 kg/m2 32.19 kg/m2 eCW1 ([facility]) Body weight 218 [lb_av] 218 [lb_av] eCW1 ([facility]) Body height 69 [in_i] 69 [in_i] eCW1 ([facility]) Diastolic blood pressure 74 mm[Hg] 74 mm[Hg] eCW1 ([facility]) Systolic blood pressure 126 mm[Hg] 126 mm[Hg] e CW1 ([facility]) Oxygen saturation in Arterial blood by Pulse oximetry 99 % 99 % eCW1 ([facility]) Respiratory rate 18 /min 18 /min eCW1 ([facility]) Heart rate 85 /min 85 /min eCW1 ([facility]) Body temperature 98.2 [degF] 98.2 [degF] eCW1 ( [facility]) Body mass index (BMI) [Ratio] 32.34 kg/m2 32.34 kg/m2 eCW1 ([facility]) Body weight 219 [lb_av] 219 [lb_av] eCW1 ([facility]) Body height 69 [in_i] 69 [in_i] eCW1 ([facility]) Diastolic blood pressure 80 mm[Hg] 80 mm[Hg] eCW1 ([facility]) Systolic blood pressure 132 mm[Hg] 132 mm[Hg] e CW1 ([facility]) Oxygen saturation in Arterial blood by Pulse oximetry 97 % 97 % eCW1 ([facility]) Respiratory rate 20 /min 20 /min eCW1 ([facility]) Heart rate 95 /min 95 /min eCW1 ([facility]) Body temperature 98.6 [degF] 98.6 [degF] eCW1 ( [facility]) Body mass index (BMI) [Ratio] 32.78 kg/m2 32.78 kg/m2 eCW1 ([facility]) Body weight 222 [lb_av] 222 [lb_av] eCW1 ([facility]) Body height 69 [in_i] 69 [in_i] eCW1 ([facility]) Diastolic blood pressure 82 mm[Hg] 82 mm[Hg] eCW1 ([facility]) Systolic blood pressure 124 mm[Hg] 124 mm[Hg] e CW1 ([facility]) Oxygen saturation in Arterial blood by Pulse oximetry 95 % 95 % eCW1 ([facility]) Respiratory rate 18 /min 18 /min eCW1 ([facility]) Heart rate 69 /min 69 /min eCW1 ([facility]) Body temperature 98.0 [degF] 98.0 [degF] eCW1 ( [facility]) Body mass index (BMI) [Ratio] 31.45 kg/m2 31.45 kg/m2 eCW1 ([facility]) Body weight 96.62 kg 96.62 kg eCW1 ([facility]) Body weight 213 [lb_av] 213 [lb_av] eCW1 ([facility]) Body height 69 [in_i] 69 [in_i] eCW1 ([facility]) Diastolic blood pressure 72 mm[Hg] 72 mm[Hg] eCW1 ([facility]) Systolic blood pressure 122 mm[Hg] 122 mm[Hg] e CW1 ([facility]) Deprecated Oxygen saturation in Capillary blood by Oximetry 98 % 98 % eCW1 ([facility]) Respiratory rate 18 /min 18 /min eCW1 ([facility]) Heart rate 77 /min 77 /min eCW1 ([facility]) Body temperature 98.3 [degF] 98.3 [degF] eCW1 ( [facility]) Body mass index (BMI) [Ratio] 30.86 kg/m2 30.86 kg/m2 eCW1 ([facility]) Body weight Measured 209 [lb_av] 209 [lb_av] eC W1 ([facility]) Body height 69 [in_us] 69 [in_us] eCW1 ([facility]) ID Date Data Source [id number] 02/10/2020 10:08:00 AM EDT [facility] Name Value Range Interpretation Code Description Data Source(s) WEIGHT 97.27 kilos 97.27 kilos [facility] HEIGHT 175.26 centimeters 175.26 centimeter s [facility] WEIGHT 95.27 kilos 95.27 kilos [facility] ital HEIGHT 175.26 centimeters 175.26 centimeter s [facility] ID Date Data Source [id number] 02/10/2020 10:08:00 AM EDT [facility] Name Value Range Interpretation Code Description Data Source(s) WEIGHT 89.54 kilos 89.54 kilos [facility] ital HEIGHT 175.26 centimeters 175.26 centimeter s [facility] Patient Treatment Plan of Care Planned Activity Planned Date Details Description Data Source (s) Fluconazole 100 MG Oral Tablet [Diflucan] 02/05/2020 12:00:00 AM ED T eCW1 ([facility]) 28 ACTUAT olodaterol 0.0025 MG/ACTUAT / tiotropium 0.0025 MG/ACTUAT Metered Dose Inhaler [Stiolto] 02/05/2020 12:00:00 AM EDT eC W1 ([facility]) Fluconazole 100 MG Oral Tablet [Diflucan] 02/05/2020 12:00:00 AM ED T eCW1 ([facility]) 28 ACTUAT olodaterol 0.0025 MG/ACTUAT / tiotropium 0.0025 MG/ACTUAT Metered Dose Inhaler [Stiolto] 02/05/2020 12:00:00 AM EDT eC W1 ([facility]) 200 ACTUAT Albuterol 0.09 MG/ACTUAT Metered Dose Inhal er [ProAir] 01/22/2020 12:00:00 AM EDT eCW1 ([facility]) 200 ACTUAT Albuterol 0.09 MG/ACTUAT Metered Dose Inhal er [ProAir] 01/22/2020 12:00:00 AM EDT eCW1 ([facility]) 30 ACTUAT fluticasone furoate 0.1 MG/ACT UAT / vilanterol 0.025 MG/ACTUAT Dry Powder Inhaler [Breo] 01/22/2020 12:00:00 AM EDT eCW1 ([facility]) 200 ACTUAT Albuterol 0.09 MG/ACTUAT Metered Dose Inhal er [ProAir] 01/22/2020 12:00:00 AM EDT eCW1 ([facility]) 30 ACTUAT fluticasone furoate 0.1 MG/ACT UAT / vilanterol 0.025 MG/ACTUAT Dry Powder Inhaler [Breo] 01/22/2020 12:00:00 AM EDT eCW1 ([facility]) 200 ACTUAT Albuterol 0.09 MG/ACTUAT Metered Dose Inhal er [ProAir] 01/22/2020 12:00:00 AM EDT eCW1 ([facility]) 30 ACTUAT fluticasone furoate 0.1 MG/ACT UAT / vilanterol 0.025 MG/ACTUAT Dry Powder Inhaler [Breo] 01/22/2020 12:00:00 AM EDT eCW1 ([facility]) 200 ACTUAT Albuterol 0.09 MG/ACTUAT Metered Dose Inhal er [ProAir] 01/22/2020 12:00:00 AM EDT eCW1 ([facility])
[2020-08-30] MEDS ORDERED: NS 1,000 ML IV SCH (00:32)
[2020-08-30] MEDS ORDERED: MORPHINE 4 MG/ML 1ML VIAL/SYRINGE (J2270) IV ONE (00:45)
[2020-08-30 01:04] LABS: BASO % 0.5 % (0.0-1.0); EOS # 0.3 10^3/uL (0.0-0.5); EOS % 3.6 % (0.0-3.0); HEMATOCRIT 44.5 % (42.0-52.0); HEMOGLOBIN 15.1 g/dl (13.5-17.5); LYMPH # 1.5 10^3/uL (1.5-5.0); LYMPH % 19.1 % (24.0-44.0); MEAN CORPUSCULAR HEMOGLOBIN 30.3 pg (27.0-33.0); MEAN CORPUSCULAR HGB CONC 33.9 g/dl (32.0-36.5); MEAN CORPUSCULAR VOLUME 89.2 fl (80.0-96.0); MONO # 0.8 10^3/uL (0.0-0.8); MONO % 10.1 % (2.0-8.0); NEUTROPHILS % 66.2 % (36.0-66.0); PLATELET COUNT, AUTOMATED 183 10^3/uL (150-450); RED BLOOD COUNT 4.99 10^6/uL (4.30-6.10); WHITE BLOOD COUNT 7.6 10^3/uL (4.0-10.0)
[2020-08-30 01:37] LABS: ALT/SGPT 32 U/L (12-78); BILIRUBIN,DIRECT 0.1 MG/DL (0.0-0.2); BILIRUBIN,TOTAL 0.4 MG/DL (0.2-1.0); BLOOD UREA NITROGEN 16 MG/DL (7-18); CALCIUM LEVEL 9.3 MG/DL (8.8-10.2); CARBON DIOXIDE LEVEL 29 MEQ/L (21-32); CHLORIDE LEVEL 104 MEQ/L (98-107); CREATININE FOR GFR 0.81 MG/DL (0.70-1.30); GLOMERULAR FILTRATION RATE > 60.0 (>49); GLUCOSE, FASTING 103 MG/DL (70-100); LIPASE 127 U/L (73-393); POTASSIUM SERUM 4.4 MEQ/L (3.5-5.1); SODIUM LEVEL 140 MEQ/L (136-145); TOTAL PROTEIN 7.2 GM/DL (6.4-8.2)
[2020-08-30] MEDS ORDERED: ISOVUE-370 76% 100ML VIAL As Ordered ONE (01:55)
--- NOTE | 2020-08-30 02:54 | REPVR ---
PROCEDURE INFORMATION: Exam: CT Abdomen And Pelvis With Contrast Exam date and time: 08/30/2020 2:12 AM Age: 70 years old Clinical indication: Abdominal pain; Additional info: R flank, right sided abd pain TECHNIQUE: Imaging protocol: Computed tomography of the abdomen and pelvis with contrast. Radiation optimization: All CT scans at this facility use at least one of these dose optimization techniques: automated exposure control; mA and/or kV adjustment per patient size (includes targeted exams where dose is matched to clinical indication); or iterative reconstruction. Contrast material: ISO 370; Contrast volume: 100 ml; Contrast route: INTRAVENOUS (IV); COMPARISON: No relevant prior studies available. FINDINGS: Liver: Hepatomegaly and steatosis. Gallbladder and bile ducts: Normal. No calcified stones. No ductal dilation. Pancreas: Normal. No ductal dilation. Spleen: Normal. No splenomegaly. Adrenal glands: Normal. No mass. Kidneys and ureters: Nonobstructive left renal calculus. Stomach and bowel: Unremarkable. No obstruction. No mucosal thickening. Appendix: No evidence of appendicitis. Intraperitoneal space: Unremarkable. No free air. No significant fluid collection. Vasculature: Atherosclerotic disease of coronary arteries. Atherosclerotic disease of the abdominal aorta. Lymph nodes: Unremarkable. No enlarged lymph nodes. Urinary bladder: Unremarkable as visualized. Reproductive: Enlarged prostate. Bones/joints: Facet arthropathy in the lower lumbar spine. Soft tissues: Fat containing umbilical hernia. Fat containing bilateral inguinal hernias. Fat containing bilateral inguinal hernias. IMPRESSION: Hepatomegaly and steatosis. No bowel obstruction. Normal appendix. Nonobstructive left renal calculus. No hydronephrosis. Electronically signed by: Zach Umana On 08/30/2020 02:54:29 AM
[2020-08-30 03:30] VITALS: BP 146/72
== END 2020-08-30 04:18 | disposition home or self-care (01) ==
LOC: M ED 23:37
DX: R10.31 Right lower quadrant pain (principal); M54.5 Low back pain; R16.0 Hepatomegaly, not elsewhere classified; K76.0 Fatty (change of) liver, not elsewhere classified; R11.0 Nausea; R19.7 Diarrhea, unspecified
CPT/HCPCS: 74177; 80048; 80076; 81001; 83690; 85025; 93041; 96361; 96374; 99284; J2270; Q9967